=== PATIENT | female | born 1950 | race Hispanic/Latino ===

== ENCOUNTER 2017-08-22 17:07 | Inpatient (IN) | payer MEDICARE ==
[~2017-08-22] VITALS: Ht 157.5 cm; Wt 37.4 kg
[~2017-08-22 17:07] MED LIST: BENTYL10 MG PO; CEFDINIR300 MG PO; CEFUROXIME250 MG PO; CIPRO500 MG PO; FLAGYL250 MG PO; LEVAQUIN250 MG PO; LEVAQUIN500 MG PO; LEXAPRO10 MG PO; METOPROLOL TART50 MG PO; PROBIOTIC & AC1 EACH PO; QUESTRAN PACKET4 GM PO; ULTRAM 50MG50 MG PO; ULTRAM50 MG PO; ZOFRAN ODT4 MG; ZOFRAN ODT4 MG PO; ZOFRAN ODT4 MG SL; penicillin PO
[2017-08-22] MEDS ORDERED: ACETAMINOPHEN 325 MG TAB PO ONE (17:30)
--- NOTE | 2017-08-22 17:54 | Diagnostic Imaging Report ---
Two view chest x-ray INDICATION: Cough, fever COMPARISON: CT chest 12/16/2016. FINDINGS: The heart is normal in size. The aorta is ectatic. There is no evidence of hilar lymphadenopathy. The pulmonary vascular markings are normal. Diffuse pulmonary hyperinflation. There are 3 punctate calcifications or vessels on end in the right upper lobe. This is similar to career agent image of CT. There are no infiltrates. There is no evidence of focal consolidation or pleural effusion. Evaluation of the osseous structures demonstrates no focal abnormality. A percutaneous nephrostomy in the left upper quadrant is stable. IMPRESSION: Pulmonary hyperinflation consistent with COPD. No acute cardiopulmonary process. Signed by: Dr. Aruna Jewell MD on 08/22/2017 5:50 PM
[2017-08-22 19:03] LABS: BASOPHILS % 0.1 % (0.0-1.0); HEMATOCRIT 37.8 % (34.2-44.1); HEMOGLOBIN 12.3 g/dL (12.0-16.0); LYMPHOCYTES # (AUTO) 0.8 (1.0-3.2); LYMPHOCYTES % 8.7 % (18.0-39.1); MEAN CORPUSCULAR HEMOGLOBIN 31.4 pg (28-32); MEAN CORPUSCULAR HGB CONC 32.5 g/dL (31-35); MEAN CORPUSCULAR VOLUME 96.4 fL (81-99); MONOCYTES # (AUTO) 0.7 (0.2-0.8); MONOCYTES % 6.9 % (4.4-11.3); NEUTROPHILS # (AUTO) 8.1 (2.1-6.9); NEUTROPHILS % 83.9 % (38.7-80.0); PLATELET COUNT 152 x10e3/uL (140-360); RED BLOOD COUNT 3.92 x10e6/uL (3.6-5.1); RED CELL DISTRIBUTION WIDTH 13.1 % (11.7-14.4)
[2017-08-22 19:18] LABS: INR 0.78; PROTHROMBIN TIME 11.2 seconds (11.9-14.5)
[2017-08-22 19:19] LABS: PARTIAL THROMBOPLASTIN TIME 45.9 seconds (23.8-35.5)
[2017-08-22 19:27] LABS: ALANINE AMINOTRANSFERASE 12 IU/L (0-55); ALBUMIN 3.4 g/dL (3.5-5.0); ALBUMIN/GLOBULIN RATIO 0.8 (0.8-2.0); ALKALINE PHOSPHATASE 75 IU/L (40-150); ANION GAP 14.6 mmol/L (8-16); BLOOD UREA NITROGEN 24 mg/dL (7-26); BUN/CREATININE RATIO 28 (6-25); CALCIUM 9.3 mg/dL (8.4-10.2); CARBON DIOXIDE 24 mmol/L (22-29); CHLORIDE 102 mmol/L (98-107); CREATINE KINASE 28 IU/L (29-168); CREATININE, SERUM 0.87 mg/dL (0.57-1.11); EST GLOMERULAR FILTRATION RATE > 60 ML/MIN (60-); GLUCOSE 85 mg/dL (74-118); POTASSIUM 3.6 mmol/L (3.5-5.1); SODIUM 137 mmol/L (136-145)
--- NOTE | 2017-08-22 21:49 | Diagnostic Imaging Report ---
CT ABDOMEN/PELVIS WO Clinical history: Stone protocol, left nephrostomy pain Technique: Volumetric CT scan of the abdomen and pelvis was performed. No intravenous or enteric contrast was administered. Coronal, sagittal and axial images are generated from source data. Comparison: 10/31/2016 Findings: Lack of IV contrast decreases sensitivity in evaluating abdominal and pelvic organs. Lower Thorax: Primarily bibasilar reticular nodular opacities. Kidneys/Ureters/Bladder: Left percutaneous nephrostomy appears unchanged in position. Atrophic left kidney with cortical scarring. No hydronephrosis or stone disease of either kidney. No bladder stones. Other: Suboptimal noncontrast evaluation of the liver, spleen, pancreas, adrenals are grossly unremarkable. Status post cholecystectomy and hysterectomy. Status post low anterior resection with left lower quadrant colostomy and bowel containing parastomal hernia. No evidence of obstruction. Mild to moderate atherosclerotic calcifications. No free fluid or air. Bones/Soft tissues: Scattered degenerative changes, worse at L5-S1.. Impression: 1. Bilateral lower lobe aspiration/pneumonia. 2. Stable left percutaneous nephrostomy with atrophic left kidney. No significant hydronephrosis. Signed by: Dr Jodi Fay MD on 08/22/2017 9:46 PM
[2017-08-22 22:28] LABS: BILIRUBIN,URINE NEGATIVE (NEGATIVE); CLARITY,URINE CLOUDY (CLEAR); COLOR,URINE BROWN (YELLOW); KETONES,URINE 1+ (NEGATIVE); LEUKOCYTE ESTERASE ,URINE 2+ (NEGATIVE); URINE UROBILINOGEN 0.2 mg/dL (0.2 - 1)
[2017-08-22 22:29] LABS: NITRITE,URINE POSITIVE (NEGATIVE); PROTEIN,URINE DIPSTICK 2+ (NEGATIVE)
[2017-08-22 22:31] LABS: BACTERIA,URINE MANY /HPF; EPITHELIAL CELLS,URINE FEW /LPF
[2017-08-22 22:32] LABS: AMORPHOUS SEDIMENT,URINE FEW (FEW)
[2017-08-22] MEDS: MEROPENEM 1GRAM 1 GM in SODIUM CHLORIDE 0.9% 100 ML 100 ML IV SCH (22:57)
[2017-08-22] MEDS: OSELTAMIVIR PHOSPHATE 75 MG CAP PO SCH (22:57)
[2017-08-22] MEDS ORDERED: ALBUTEROL SULF 0.083% NEB SOLN 3 ML NEB NEB PRN (23:00)
[2017-08-22] MEDS ORDERED: IPRATROPIUM BROMIDE 0.02% 2.5 ML NEB NEB PRN (23:00)
[2017-08-22] MEDS ORDERED: D5.45%NS/KCL 20MEQ 1,000 ML IV ONE (23:00)
[2017-08-22] MEDS: AZITHROMYCIN 500MG/NS 250 ML 250 ML IV SCH (23:47)
[2017-08-23] VITALS (8 sets, daily range): BP systolic 104–136; BP diastolic 69–84
[2017-08-23] MEDS ORDERED: METOPROLOL TART50 MG PO (04:55)
[2017-08-23] MEDS ORDERED: MEROPENEM 1 GM VIAL ONE ×3 (05:03→20:36)
[2017-08-23] MEDS: MEROPENEM 1GRAM 1 GM in SODIUM CHLORIDE 0.9% 100 ML 100 ML IV SCH ×3 (05:07→21:18)
[2017-08-23] MEDS: AZITHROMYCIN 500MG/NS 250 ML 250 ML IV SCH (09:00)
[2017-08-23] MEDS: OSELTAMIVIR PHOSPHATE 75 MG CAP PO SCH ×2 (09:00→16:47)
[2017-08-23 09:17] LABS: CREATINE KINASE MB 0.5 ng/mL (0.00-5.00)
[2017-08-23 16:03] LABS: CREATINE KINASE MB 0.4 ng/mL (0.00-5.00)
[2017-08-23] MEDS: ENOXAPARIN SOD INJ 40 MG/0.4 ML SYR SC SCH (18:00)
[2017-08-23] MEDS: FAMOTIDINE 20 MG TAB PO SCH (18:00)
[2017-08-23] MEDS ORDERED: CHOLESTYRAMINE 4 GM PACKET PO PRN (18:00)
--- NOTE | 2017-08-24 00:15 | History and Physical ---
PRIMARY CARE PROVIDER: Not on staff. CHIEF COMPLAINT: Fever, chills, and cough. HISTORY OF PRESENT ILLNESS: Ms. Alvarado is a 66-year-old lady presenting with fever, chills at home and hacking cough producing some thick yellow sputum for the last 3 days. She is also having some tenderness over her left nephrostomy site. REVIEW OF SYSTEMS: She does complain of subjective fever and chills. She denies weight loss. She denies sinus congestion, but has had some sore throat. She denies chest pain or palpitations. She denies shortness of breath, but has had a hacking cough producing thick yellow sputum. She denies abdominal pain, nausea, vomiting, or melena. She denies dysuria. She does have some left flank pain related to left-sided nephrostomy. She denies rash or pruritus. She denies joint pain or swelling. She denies bleeding or bruising. She denies headache, vertigo, or loss of consciousness. She denies depression, agitation, homicidal or suicidal ideation. PAST MEDICAL HISTORY: Significant for long-standing hypertension. The patient had surgery in 2007 for resection of a benign colon mass. She had a partial colon resection left sided with colostomy formation, and during the surgery she had damage to her left ureter and had to have a left-sided nephrostomy tube placed which she has had in since 2007. She is being followed by urology, who changes out the nephrostomy tube about every other month or so. CURRENT MEDICATIONS: Include cefuroxime, she has been taking for UTI. She takes Questran 4 gram packets twice a day as needed for diarrhea, Lexapro 10 mg daily. She takes a probiotic capsule twice a day and she takes metoprolol 50 mg daily. ALLERGIES: SHE HAS STATED ALLERGY TO CODEINE. FAMILY HISTORY: Significant for hypertension. SOCIAL HISTORY: The patient is , but she speaks good Hebrew. She does not smoke, drink, or use illegal drugs, and she is generally independently functioning. PHYSICAL EXAMINATION: PSYCHIATRIC: She is alert and oriented x3 with normal mood and affect. CONSTITUTIONAL: She is a little bit cachectic with a BMI of 13.89, 76 pounds. She is in no acute distress. VITAL SIGNS: As follows: Blood pressure 114/72; pulse 81 currently, 114 on admission; respiratory rate 18; O2 sat 95% on room air; temperature 99.2 currently, 101.9 on admission. HEENT: Her head is atraumatic. Her eyes are anicteric with clear conjunctivae. Ears and nares are without erythema or discharge. Oropharynx is clear. NECK: Supple with no mass or thyromegaly. LYMPHATIC SYSTEM: She has no palpable cervical, axillary, or inguinal adenopathy. CARDIOVASCULAR SYSTEM: Her heart has a regular rate and rhythm without murmur or extra heart sounds. She has no peripheral edema. She has palpable dorsal pedal pulses. She has no carotid bruit. RESPIRATORY: Lungs are clear to auscultation and percussion with a hacking bronchitic cough. She has no wheezing. She has normal respiratory effort. GASTROINTESTINAL: Her abdomen is soft without organomegaly, masses, or tenderness. She has normal bowel sounds present. She has some tenderness over last nephrostomy area with some mild erythema. CUTANEOUS: Her skin is warm and dry to touch with no rash or skin breakdown. MUSCULOSKELETAL: Her joints are in normal alignment without erythema or swelling. She has no calf tenderness. NEUROLOGIC: Nonfocal with intact cranial nerves and no motor or sensory deficits. DIAGNOSTIC STUDIES: Chest x-ray shows COPD changes and no acute disease. CT scan of the abdomen shows bilateral lower lobe pneumonia versus aspiration. She has an atrophic left kidney and a nephrostomy in place with no hydronephrosis. Her UA has 11 to 20 red cells and 11 to 20 white cells and many bacteria. Cultures already growing greater than 100,000 gram-negative rods. She has in the past grown Klebsiella that was multidrug resistant. Troponin 0.006, 0.010, 0.012 and BNP 40.8. Her chemistry shows normal electrolytes, CO2 24, creatinine 0.87, BUN 24 for a normal GFR. Calcium is 9.3. Glucose is 85. Transaminases, bilirubin, and alk phos are normal. CBC shows a white count of 9.7 with 84% neutrophils, 9% lymphocytes, and 7% monocytes. Hemoglobin 12.3, hematocrit 37.8, and platelet count 152,000. IMPRESSION AND PLAN: 1. Sepsis. Patient meets criteria with elevated temperature, elevated heart rate, and an identifiable source in the urine. The patient received some intravenous fluid bolus and is being treated with broad-spectrum antibiotics. 2. Bronchitis. The patient has been placed on supplemental oxygen, aggressive nebulizer treatments, as well as intravenous meropenem and Zithromax and p.o. Mucinex for expectoration. 3. Urinary tract infection/left pyelonephritis with a left nephrostomy tube. The patient has been started on intravenous meropenem for the urinary tract infection growing gram-negative rods. Will consult urology to orchestrate removing and replacing the left-sided nephrostomy. 4. For hypertension, the patient is controlled. Will continue her metoprolol. 5. For prophylaxis, the patient will be on Pepcid for gastrointestinal prophylaxis and Lovenox for deep venous thrombosis prophylaxis. Job#: [id number]
[2017-08-24] MEDS ORDERED: MEROPENEM 1 GM VIAL ONE ×3 (04:29→20:21)
[2017-08-24 05:12] VITALS: BP 123/72
[2017-08-24] MEDS: MEROPENEM 1GRAM 1 GM in SODIUM CHLORIDE 0.9% 100 ML 100 ML IV SCH ×3 (05:25→21:07)
[2017-08-24 06:48] LABS: BASOPHILS % 0.4 % (0.0-1.0); EOSINOPHILS # (AUTO) 0.1 (0.0-0.4); EOSINOPHILS % 1.1 % (0.0-6.0); HEMATOCRIT 34.6 % (34.2-44.1); HEMOGLOBIN 11.3 g/dL (12.0-16.0); LYMPHOCYTES # (AUTO) 0.9 (1.0-3.2); LYMPHOCYTES % 15.1 % (18.0-39.1); MEAN CORPUSCULAR HEMOGLOBIN 31.7 pg (28-32); MEAN CORPUSCULAR HGB CONC 32.7 g/dL (31-35); MEAN CORPUSCULAR VOLUME 97.2 fL (81-99); MONOCYTES # (AUTO) 0.4 (0.2-0.8); MONOCYTES % 6.9 % (4.4-11.3); NEUTROPHILS # (AUTO) 4.3 (2.1-6.9); NEUTROPHILS % 76.3 % (38.7-80.0); PLATELET COUNT 188 x10e3/uL (140-360); RED BLOOD COUNT 3.56 x10e6/uL (3.6-5.1); RED CELL DISTRIBUTION WIDTH 12.9 % (11.7-14.4)
[2017-08-24 07:06] LABS: ANION GAP 8.9 mmol/L (8-16); BLOOD UREA NITROGEN 14 mg/dL (7-26); BUN/CREATININE RATIO 20 (6-25); CALCIUM 8.4 mg/dL (8.4-10.2); CARBON DIOXIDE 28 mmol/L (22-29); CHLORIDE 102 mmol/L (98-107); EST GLOMERULAR FILTRATION RATE > 60 ML/MIN (60-); GLUCOSE 99 mg/dL (74-118); MAGNESIUM 1.6 MG/DL (1.3-2.1); POTASSIUM 3.9 mmol/L (3.5-5.1); SODIUM 135 mmol/L (136-145)
[2017-08-24 07:28] VITALS: BP 102/69
[2017-08-24 07:35] LABS: FREE T4 (FREE THYROXINE) 1.51 ng/dL (0.8-1.8); THYROID STIMULATING HORMONE 1.004 uIU/mL (0.350-4.940)
[2017-08-24] MEDS: FAMOTIDINE 20 MG TAB PO SCH ×2 (08:15→16:35)
[2017-08-24] MEDS: ESCITALOPRAM OXALATE 10 MG TAB PO SCH (09:00)
[2017-08-24] MEDS: LACTOBACILLUS ACIDOPHILUS CAPSULE PO SCH ×2 (09:30→16:35)
[2017-08-24] MEDS: OSELTAMIVIR PHOSPHATE 75 MG CAP PO SCH ×2 (09:30→16:35)
[2017-08-24] MEDS: AZITHROMYCIN 500MG/NS 250 ML 250 ML IV SCH (09:30)
[2017-08-24] MEDS: METOPROLOL TARTRATE 50 MG TAB PO SCH (09:30)
[2017-08-24 11:23] VITALS: BP 114/83
[2017-08-24 15:42] VITALS: BP 104/70
[2017-08-24] MEDS: ENOXAPARIN SOD INJ 40 MG/0.4 ML SYR SC SCH (16:35)
[2017-08-24] MEDS: GUAIFENESIN 600 MG TAB PO SCH (17:55)
[2017-08-24 20:00] VITALS: BP 96/71
[2017-08-25] VITALS: BP 111/76
[2017-08-25] MEDS: GUAIFENESIN 600 MG TAB PO SCH ×4 (00:09→17:20)
[2017-08-25 04:00] VITALS: BP_SYST 111; BP_SYST 175; BP_DIAS 72; BP_DIAS 83
[2017-08-25] MEDS: MEROPENEM 1GRAM 1 GM in SODIUM CHLORIDE 0.9% 100 ML 100 ML IV SCH ×3 (05:48→22:09)
[2017-08-25 07:19] LABS: BASOPHILS % 0.4 % (0.0-1.0); EOSINOPHILS # (AUTO) 0.1 (0.0-0.4); EOSINOPHILS % 2.2 % (0.0-6.0); HEMATOCRIT 35.4 % (34.2-44.1); HEMOGLOBIN 11.4 g/dL (12.0-16.0); LYMPHOCYTES # (AUTO) 0.8 (1.0-3.2); LYMPHOCYTES % 28.9 % (18.0-39.1); MEAN CORPUSCULAR HEMOGLOBIN 31.3 pg (28-32); MEAN CORPUSCULAR HGB CONC 32.2 g/dL (31-35); MEAN CORPUSCULAR VOLUME 97.3 fL (81-99); MONOCYTES # (AUTO) 0.3 (0.2-0.8); MONOCYTES % 10.5 % (4.4-11.3); NEUTROPHILS # (AUTO) 1.6 (2.1-6.9); NEUTROPHILS % 57.6 % (38.7-80.0); PLATELET COUNT 229 x10e3/uL (140-360); RED BLOOD COUNT 3.64 x10e6/uL (3.6-5.1); RED CELL DISTRIBUTION WIDTH 12.7 % (11.7-14.4)
[2017-08-25 07:36] LABS: ANION GAP 10.1 mmol/L (8-16); BLOOD UREA NITROGEN 16 mg/dL (7-26); BUN/CREATININE RATIO 21 (6-25); CALCIUM 8.8 mg/dL (8.4-10.2); CARBON DIOXIDE 27 mmol/L (22-29); CHLORIDE 104 mmol/L (98-107); CREATININE, SERUM 0.76 mg/dL (0.57-1.11); EST GLOMERULAR FILTRATION RATE > 60 ML/MIN (60-); GLUCOSE 85 mg/dL (74-118); POTASSIUM 4.1 mmol/L (3.5-5.1); SODIUM 137 mmol/L (136-145)
[2017-08-25] MEDS: FAMOTIDINE 20 MG TAB PO SCH ×2 (08:00→17:00)
[2017-08-25] MEDS: METOPROLOL TARTRATE 50 MG TAB PO SCH (08:15)
[2017-08-25] MEDS: AZITHROMYCIN 500MG/NS 250 ML 250 ML IV SCH (08:15)
[2017-08-25] MEDS: OSELTAMIVIR PHOSPHATE 75 MG CAP PO SCH (08:15)
[2017-08-25] MEDS: LACTOBACILLUS ACIDOPHILUS CAPSULE PO SCH ×2 (08:45→17:25)
[2017-08-25] MEDS: ESCITALOPRAM OXALATE 10 MG TAB PO SCH (09:00)
[2017-08-25 10:15] VITALS: BP 117/76
[2017-08-25 12:40] VITALS: BP 102/68
[2017-08-25] MEDS ORDERED: MEROPENEM 1 GM VIAL ONE ×2 (14:54→20:31)
[2017-08-25 16:11] VITALS: BP 95/55
[2017-08-25] MEDS: ENOXAPARIN SOD INJ 40 MG/0.4 ML SYR SC SCH (17:20)
[2017-08-25 20:00] VITALS: BP 105/69
[2017-08-26] VITALS: BP 112/69
[2017-08-26 04:00] VITALS: BP 117/68
[2017-08-26] MEDS: GUAIFENESIN 600 MG TAB PO SCH ×5 (06:00→23:13)
[2017-08-26] MEDS: MEROPENEM 1GRAM 1 GM in SODIUM CHLORIDE 0.9% 100 ML 100 ML IV SCH ×2 (06:42→13:13)
[2017-08-26] MEDS: FAMOTIDINE 20 MG TAB PO SCH ×2 (07:30→17:38)
[2017-08-26 07:55] LABS: BASOPHILS % 0.8 % (0.0-1.0); EOSINOPHILS # (AUTO) 0.1 (0.0-0.4); EOSINOPHILS % 4.4 % (0.0-6.0); HEMATOCRIT 38.9 % (34.2-44.1); HEMOGLOBIN 12.5 g/dL (12.0-16.0); LYMPHOCYTES # (AUTO) 0.8 (1.0-3.2); LYMPHOCYTES % 33.5 % (18.0-39.1); MEAN CORPUSCULAR HEMOGLOBIN 31.4 pg (28-32); MEAN CORPUSCULAR HGB CONC 32.1 g/dL (31-35); MEAN CORPUSCULAR VOLUME 97.7 fL (81-99); MONOCYTES # (AUTO) 0.3 (0.2-0.8); MONOCYTES % 10.4 % (4.4-11.3); NEUTROPHILS # (AUTO) 1.3 (2.1-6.9); NEUTROPHILS % 50.5 % (38.7-80.0); PLATELET COUNT 316 x10e3/uL (140-360); RED BLOOD COUNT 3.98 x10e6/uL (3.6-5.1); RED CELL DISTRIBUTION WIDTH 12.6 % (11.7-14.4)
[2017-08-26 08:03] LABS: BLOOD UREA NITROGEN 21 mg/dL (7-26); BUN/CREATININE RATIO 26 (6-25); CALCIUM 9.1 mg/dL (8.4-10.2); CARBON DIOXIDE 27 mmol/L (22-29); CHLORIDE 104 mmol/L (98-107); CREATININE, SERUM 0.82 mg/dL (0.57-1.11); EST GLOMERULAR FILTRATION RATE > 60 ML/MIN (60-); GLUCOSE 87 mg/dL (74-118); SODIUM 140 mmol/L (136-145)
[2017-08-26] MEDS: LACTOBACILLUS ACIDOPHILUS CAPSULE PO SCH ×2 (08:45→17:36)
[2017-08-26] MEDS ORDERED: LIDOCAINE HCL 2% LOCAL 20 ML VIAL ONE (09:32)
[2017-08-26] MEDS ORDERED: FENTANYL CITRATE/PF 100MCG/2 ML INJ ONE (09:32)
[2017-08-26] MEDS ORDERED: MIDAZOLAM HCL 2 MG/2 ML VIAL ONE (09:32)
[2017-08-26] MEDS ORDERED: SODIUM CHLORIDE 0.9% 500ML 1,000 ML ONE (09:33)
[2017-08-26] MEDS ORDERED: IOPAMIDOL 300MG/ML 50ML INFUS..BTL IV ONE (09:33)
[2017-08-26] MEDS ORDERED: SODIUM CHLORIDE 0.9% 250ML 250 ML ONE (11:16)
[2017-08-26] MEDS: AZITHROMYCIN 500MG/NS 250 ML 250 ML IV SCH (11:19)
[2017-08-26] MEDS: ESCITALOPRAM OXALATE 10 MG TAB PO SCH (11:19)
[2017-08-26] MEDS: METOPROLOL TARTRATE 50 MG TAB PO SCH (11:21)
[2017-08-26] MEDS ORDERED: ACETAMINOPHEN/CODEINE 300MG - 30MG TAB PO PRN (11:45)
[2017-08-26] MEDS ORDERED: TRAMADOL HCL 50 MG TAB PO PRN (12:00)
[2017-08-26 12:16] VITALS: BP 115/68
[2017-08-26] MEDS ORDERED: MEROPENEM 1 GM VIAL ONE (13:15)
[2017-08-26 16:21] VITALS: BP 108/64
[2017-08-26] MEDS ORDERED: IPRATROPIUM BROMIDE 0.02% 2.5 ML NEB NEB PRN (16:45)
[2017-08-26] MEDS: ENOXAPARIN SOD INJ 40 MG/0.4 ML SYR SC SCH (17:36)
[2017-08-26 20:03] VITALS: BP 104/65
[2017-08-26] MEDS ORDERED: MEROPENEM 1 GM VIAL IV SCH (22:00)
[2017-08-26] MEDS: MEROPENEM 1 GM VIAL IV SCH (22:00)
[2017-08-27 00:30] VITALS: BP 105/63
[2017-08-27 02:30] VITALS: BP 105/63
[2017-08-27 05:09] VITALS: BP 112/58
[2017-08-27] MEDS: GUAIFENESIN 600 MG TAB PO SCH ×3 (06:08→18:00)
[2017-08-27] MEDS: MEROPENEM 1 GM VIAL IV SCH ×2 (06:08→13:00)
--- NOTE | 2017-08-27 06:38 | Diagnostic Imaging Report ---
EXAMINATION: CHEST SINGLE (PORTABLE) INDICATION: Pneumonia, follow-up COMPARISON: 08/22/2017 FINDINGS: TUBES and LINES: None. LUNGS: Hyperinflation of the lungs with stable scattered interstitial nodular opacities predominantly in the lung bases. PLEURA: No pleural effusion or pneumothorax. HEART AND MEDIASTINUM: The cardiomediastinal silhouette is unremarkable. BONES AND SOFT TISSUES: No acute osseous lesion. Soft tissues are unremarkable. UPPER ABDOMEN: No free air under the diaphragm. IMPRESSION: Stable interstitial nodular opacities in the lung bases compatible with persistent infection. COPD present. Signed by: Dr. Matt Young M.D. on 08/27/2017 6:35 AM
[2017-08-27 07:14] LABS: BASOPHILS % 1.2 % (0.0-1.0); EOSINOPHILS # (AUTO) 0.2 (0.0-0.4); HEMOGLOBIN 10.8 g/dL (12.0-16.0); LYMPHOCYTES # (AUTO) 0.9 (1.0-3.2); LYMPHOCYTES % 34.3 % (18.0-39.1); MEAN CORPUSCULAR HGB CONC 32.7 g/dL (31-35); MEAN CORPUSCULAR VOLUME 97.6 fL (81-99); MONOCYTES # (AUTO) 0.4 (0.2-0.8); MONOCYTES % 15.1 % (4.4-11.3); NEUTROPHILS # (AUTO) 1.1 (2.1-6.9); PLATELET COUNT 310 x10e3/uL (140-360); RED BLOOD COUNT 3.38 x10e6/uL (3.6-5.1); RED CELL DISTRIBUTION WIDTH 12.5 % (11.7-14.4)
[2017-08-27 07:42] LABS: ANION GAP 9.3 mmol/L (8-16); BLOOD UREA NITROGEN 19 mg/dL (7-26); BUN/CREATININE RATIO 27 (6-25); CALCIUM 8.7 mg/dL (8.4-10.2); CARBON DIOXIDE 28 mmol/L (22-29); CHLORIDE 103 mmol/L (98-107); EST GLOMERULAR FILTRATION RATE > 60 ML/MIN (60-); GLUCOSE 88 mg/dL (74-118); POTASSIUM 4.3 mmol/L (3.5-5.1); SODIUM 136 mmol/L (136-145)
[2017-08-27 07:51] VITALS: BP 121/81
[2017-08-27] MEDS: AZITHROMYCIN 500MG/NS 250 ML 250 ML IV SCH (08:59)
[2017-08-27] MEDS: FAMOTIDINE 20 MG TAB PO SCH ×2 (08:59→16:30)
[2017-08-27] MEDS: LACTOBACILLUS ACIDOPHILUS CAPSULE PO SCH ×2 (08:59→17:00)
[2017-08-27] MEDS: METOPROLOL TARTRATE 50 MG TAB PO SCH (09:00)
[2017-08-27] MEDS: ESCITALOPRAM OXALATE 10 MG TAB PO SCH (09:00)
[2017-08-27 11:56] VITALS: BP_SYST 104; BP_SYST 115; BP_DIAS 70; BP_DIAS 71
[2017-08-27] MEDS ORDERED: ACETYLCYSTEINE 20% INHAL SOLN 30 ML VIAL INH SCH (15:00)
[2017-08-27 15:52] VITALS: BP 101/66
[2017-08-27] MEDS: ENOXAPARIN SOD INJ 40 MG/0.4 ML SYR SC SCH (18:12)
[2017-08-27] MEDS ORDERED: MUCINEX600 MG PO (18:23)
[2017-08-27] MEDS ORDERED: PREDNISONE10 MG PO (18:23)
[2017-08-27] MEDS ORDERED: LEVAQUIN PO (18:23)
--- NOTE | 2017-08-27 22:18 | Discharge Summary ---
ADMITTING DIAGNOSES 1. Sepsis. 2. Bronchitis. 3. Urinary tract infection. 4. Hypertension. DISCHARGE DIAGNOSES 1. Sepsis. 2. Bronchitis. 3. Urinary tract infection. 4. Hypertension. 5. Rule out flu. HISTORY: Patient has a history of hypertension, surgery in 2007 for resection of a benign colon mass. She had a partial colon resection left sided with colostomy formation. During the surgery, she had her left ureter was damaged and had to have a nephrostomy tube placed on the left. She is followed by urology, who changes up the nephrostomy tube every 2 to 3 months per patient report. HOSPITAL COURSE: A 66-year-old female presented with fever, chills, productive cough, thick yellow sputum for the last 3 days. She was also having some tenderness over her left nephrostomy site. On admission, patient received IV fluid bolus and IV antibiotics. Chest x-ray showed pulmonary hyperinflation consistent with COPD. No acute cardiopulmonary process. She also had a CT of the abdomen, which showed bilateral lower lobe pneumonia, stable left nephrostomy tube with atrophic left kidney. No significant hydronephrosis. Patient was started on IV antibiotics for pneumonia and the urine culture came back with proteus mirabilis, Staphylococcus aureus, Streptococcus . Patient was started on Merrem while in the hospital. Hypertension was controlled on current meds. The nephrostomy was changed per urology on August 26, 2017. A repeat urine culture was done, which was negative. Patient was sent home on another week of antibiotics to cover both the UTI and the pneumonia. Patient is to follow up with urology as regularly scheduled. Patient will discontinue home with taper steroids, guaifenesin, and antibiotics for another week. Dictated by: Carrol So NP LUDWIN JOHNSON MD Job#: [id number]
--- NOTE | 2017-08-31 12:59 | Diagnostic Imaging Report ---
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 Heart rate and oxygen saturation were monitored in real-time. Blood pressure was measured in 5 minute increments. Radiation Dose: 37.7 cGycm2 (Dose Area Product) Fluoroscopy time: 3.6 minutes Estimate blood loss: None Blood administered: None Complications: None Implants/Grafts: 10-St Helenian left nephrostomy Specimen: None Procedure: Informed consent was obtained and the patient placed prone. A timeout was performed. The left back and indwelling nephrostomy were prepped and draped in standard sterile fashion. Contrast injection reveals contrast extending to the mid ureter where there is a chronic obstruction. Mild hydronephrosis is present. The catheter was removed over a 0.035 " glidewire and exchanged for a new 10-St Helenian nephrostomy, with a loop coiled in the renal pelvis. Contrast injection confirmed appropriate positioning. Catheter was secured, connected to gravity drainage and a sterile dressing applied. Findings: Chronic left mild hydronephrosis secondary to chronic ureteral injury. Impression: Successful 10-St Helenian left nephrostomy catheter exchange. Signed by: Dr. Iván Becerril DO on 08/28/2017 7:29 AM
== END 2017-08-27 20:07 | disposition home or self-care (01) | DRG 698 ==
LOC: ER 17:07 → EDBEDREQ 23:03 → MED/SURG3 23:34
PROVIDERS: ADMIT Internal Medicine; ATTEND Internal Medicine
PROC: 0T25X0Z Change Drainage Device in Kidney, External Approach (ICD-10-PCS; principal; 2017-08-26)
DX: T83.512A Infection and inflammatory reaction due to nephrostomy catheter, initial encounter (principal); A41.9 Sepsis, unspecified organism; E87.1 Hypo-osmolality and hyponatremia; Z93.6 Other artificial openings of urinary tract status; N39.0 Urinary tract infection, site not specified; I10 Essential (primary) hypertension; Z90.49 Acquired absence of other specified parts of digestive tract; B96.4 Proteus (mirabilis) (morganii) as the cause of diseases classified elsewhere; B95.61 Methicillin susceptible Staphylococcus aureus infection as the cause of diseases classified elsewhere; B95.4 Other streptococcus as the cause of diseases classified elsewhere; Z16.24 Resistance to multiple antibiotics; Y73.2 Prosthetic and other implants, materials and accessory gastroenterology and urology devices associated with adverse incidents; Y92.019 Unspecified place in single-family (private) house as the place of occurrence of the external cause
CPT/HCPCS: 36415; 71020; 71045; 74176; 74470; 75984; 77001; 80048; 80053; 81001; 82550; 82553; 83735; 83880; 84439; 84443; 84484; 85025; 85610; 85730; 87040; 87086; 87186; 87400; 93005; 99284; J0456; J1650; J2001; J2185; J2250; J7040; J7050

== ENCOUNTER → 2017-11-03 | Day surgery (SDC) | payer MEDICARE ==
[~2017-11-03] VITALS: Ht 157.5 cm; Wt 37.2 kg
[~2017-11-03] MED LIST changes: +FENTANYL CITRATE/PF 100MCG/2 ML INJ ONE; +IOPAMIDOL 300MG/ML 50ML INFUS..BTL IV ONE; +LEVAQUIN PO; +LIDOCAINE HCL 2% LOCAL 20 ML VIAL ONE; +MIDAZOLAM HCL 2 MG/2 ML VIAL ONE; +MUCINEX600 MG PO; +PREDNISONE10 MG PO; +SODIUM CHLORIDE 0.9% 500ML 1,000 ML ONE
--- OUTSIDE RECORDS SUMMARY | 2017-11-03 10:38 | XMS REPORT ---
Author Author [facility] Address Unknown Phone Unavailable Care Team Providers Care Bridge Attacher Name Role Phone LUDWIN JOHNSON Unavailable Unavailable RONI ESCOBEDO Unavailable Unavailable LUKE KILGORE Unavailable Unavailable Problems This patient has no known problems. Allergies, Adverse Reactions, Alerts This patient has no known allergies or adverse reactions. Medications This patient has no known medications. Results Test Description Test Time Test Comments Text Results Atomic Results Result Comments CHEST SINGLE (PORTABLE) [place] [address] Patient Name: YANN CASTRO MR #: [id number] : 1950 Age/Sex: 66/F Req #: [id number] Adm Physician: LUDWIN JOHNSON MD Ordered by: Boyd Rice FIELD FOREMAN Report #: [id number] Location: MED[facility] Room/Bed: [facility] Procedure: [id number] DX/CHEST SINGLE (PORTABLE) Exam Date: 08/27/17 Exam Time: 0608 REPORT STATUS: Signed EXAMINATION: CHEST SINGLE (PORTABLE) INDICATION: Pneumonia, follow-up COMPARISON: 08/22/2017 FINDINGS: TUBES and LINES: None. LUNGS: Hyperinflation of the lungs with stable scattered interstitial nodular opacities predominantly in the lung bases. PLEURA: No pleural effusion or pneumothorax. HEART AND MEDIASTINUM : The cardiomediastinal silhouette is unremarkable. BONES AND SOFT TISSUES: No acute osseous lesion. Soft tissues are unremarkable. UPPER ABDOMEN: No free air under the diaphragm. IMPRESSION: Stable interstitial nodular opacities in the lung bases compatible with persistent infection. COPD present. Signed by: Dr. Matt Young M.D. 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 Heart rate and oxygen saturation were monitored in real-time. Blood pressure was measured in 5 minute increments. Radiation Dose: 37.7 cGycm2 (Dose Area Product) Fluoroscopy time: 3.6 minutes Estimate blood loss: None Blood administered : None Complications: None Implants/Grafts: 10-Malaysian left nephrostomy Specimen: None Procedure: Informed consent was obtained and the patient placed prone. A timeout was performed. The left back and indwelling nephrostomy were prepped and draped in standard sterile fashion. Contrast injection reveals contrast extending to the mid ureter where there is a chronic obstruction. Mild hydronephrosis is present. The catheter was removed over a 0.035 " glidewire and exchanged for a new 10-Malaysian nephrostomy , with a loop coiled in the renal pelvis. Contrast injection confirmed appropriate positioning. Catheter was secured, connected to gravity drainage and a sterile dressing applied. Findings: Chronic left mild hydronephrosis secondary to chronic ureteral injury. Impression: Successful 10-Malaysian left nephrostomy catheter exchange. Signed by: Dr. Iván Becerril DO on 08/28/2017 7:29 AM Dictated By: IVÁN BECERRIL DO 1256 Transcribed By: LIBORIO on 08/31/17 1256 COPY TO: LUDWIN JOHNSON MD CT ABDOMEN/PELVIS WO [place] [address] Patient Name: YANN CASTRO MR #: [id number] : 1950 Age/Sex: 66/F Req #: [id number] Adm Physician: Ordered by: RONI ESCOBEDO MD Report #: [id number] Location: ER Room/Bed: Procedure: [id number] CT/CT ABDOMEN/PELVIS WO Exam Date: 08/22/17 Exam Time: 2120 REPORT STATUS: Signed CT ABDOMEN/PELVIS WO Clinical history: Stone protocol, left nephrostomy pain Technique: Volumetric CT scan of the abdomen and pelvis was performed. No intravenous or enteric contrast was administered. Coronal, sagittal and axial images are generated from source data. Comparison: 10/31/2016 Findings: Lack of IV contrast decreases sensitivity in evaluating abdominal and pelvic organs. Lower Thorax: Primarily bibasilar reticular nodular opacities. Kidneys/ Ureters/Bladder: Left percutaneous nephrostomy appears unchanged in position. Atrophic left kidney with cortical scarring. No hydronephrosis or stone disease of either kidney. No bladder stones. Other: Suboptimal noncontrast evaluation of the liver, spleen, pancreas, adrenals are grossly unremarkable. Status post cholecystectomy and hysterectomy. Status post low anterior resection with left lower quadrant colostomy and bowel containing parastomal hernia. No evidence of obstruction. Mild to moderate atherosclerotic calcifications. No free fluid or air. Bones/Soft tissues: Scattered degenerative changes, worse at L5-S1.. Impression: 1. Bilateral lower lobe aspiration/pneumonia. 2. Stable left percutaneous nephrostomy with atrophic left kidney. No significant hydronephrosis. Signed by: Dr Anabell Fay MD on 08/22/2017 9:46 PM Dictated By: ANABELL FAY MD 45 Transcribed By: LIBORIO on 08/22/172145 COPY TO: RONI ESCOBEDO MD CHEST 2 VIEWS [place] [address] Patient Name: YANN CASTRO MR #: [id number] : 1950 Age/Sex: 66/F Req # : [id number] Adm Physician: Ordered by: LESLYE ADLER MD Report #: [id number] Location: ER Room/Bed: Procedure: [id number] DX/CHEST 2 VIEWS Exam Date: 08/22/17 Exam Time: 1733 REPORT STATUS: Signed Two view chest x-ray INDICATION: Cough , fever COMPARISON: CT chest 12/16/2016. FINDINGS: The heart is normal in size. The aorta is ectatic. There is no evidence of hilar lymphadenopathy. The pulmonary vascular markings are normal. Diffuse pulmonary hyperinflation. There are 3 punctate calcifications or vessels on end in the right upper lobe. This is similar to rules examiner image of CT. There are no infiltrates. There is no evidence of focal consolidation or pleural effusion. Evaluation of the osseous structures demonstrates no focal abnormality. A percutaneous nephrostomy in the left upper quadrant is stable. IMPRESSION: Pulmonary hyperinflation consistent with COPD. No acute cardiopulmonary process. Signed by: Dr. Denzel Jewell MD on 5:50 PM Dictated By: DENZEL JEWELL MD 49 Transcribed By: LIBORIO on 1749 COPY TO: LESLYE ADLER MD CT ABDOMEN/PELVIS W [place] [address] Patient Name: YANN CASTRO MR #: [id number] : 1950 Age/Sex: 66/F Req #: [id number] Adm Physician: Ordered by: MADELIN BOGGS FIELD FOREMAN Report #: [id number] Location: ER Room/Bed: Procedure: [id number] CT/CT ABDOMEN/PELVIS W Exam Date: 06/24/17 Exam Time: 2235 REPORT STATUS: Signed EXAM: CT ABDOMEN/ PELVIS W DATE: 06/24/2017 7:29 PM INDICATION: S abdominal and possible colostomy failure COMPARISON: 425 TECHNIQUE: The abdomen and pelvis were scanned using a multidetector helical scanner. Coronal and sagittal reformations were obtained. Routine protocol performed. IV Contrast: 100 ml Isovue 370 FINDINGS: LOWER THORAX: Mild right basilar scarring/ atelectasis. LIVER/BILIARY: No masses. No ductal dilatation. GALLBLADDER: Surgically absent SPLEEN: Unremarkable PANCREAS: Unremarkable ADRENALS: No nodules KIDNEYS: Left percutaneous nephrostomy tube in place without significant hydronephrosis. Underlying left renal atrophy with cortical scarring. Normal right kidney. GI TRACT: Moderate stool burden. Status post low anterior resection with left lower quadrant colostomy. Nonobstructing small and large bowel containing parastomal hernia. VESSELS: Moderate atherosclerotic changes. PERITONEUM/RETROPERITONEUM: No free air or fluid LYMPH NODES: No lymphadenopathy REPRODUCTIVE ORGANS/ BLADDER: Status post hysterectomy. BONES: Scattered degenerative changes, worse at L5-S1. IMPRESSION: 1. Status post partial colectomy with left lower quadrant colostomy and unchanged nonobstructing parastomal hernia. There is moderate stool burden. 2. Left percutaneous nephrostomy tube in place without significant hydronephrosis. Underlying left renal atrophy. Signed by: Dr Anabell Fay MD on 06/24/2017 11:18 PM Dictated By: ANABELL FAY MD 17 Transcribed By: LIBORIO on 06/24/172317 COPY TO: MADELIN BOGGS NP SPECIAL PROCEDURE IN [place] [address] Patient Name: YANN CASTRO MR #: [id number] : 1950 Age/Sex: 66/F Req #: [id number] Adm Physician: Ordered by: STEPHANIA BONDS MD Report #: [id number] Location: [place] Room/Bed: Procedure: [id number] IR/SPECIAL PROCEDURE IN [place] Exam Date: Exam Time: REPORT STATUS: Signed Nephrostomy catheter exchange June 08, 2017 Pre-Procedure Diagnosis: Left ureteral occlusion Post-procedure Diagnosis:Left ureteral occlusion County Surveyor: Eugenie Kilgore Senior User Experience Architect: None Sedation: None. Heart rate and oxygen saturation were monitored in real-time. Blood pressure was measured in 5 minute increments. Radiation Dose:21.7 cGycm2 (Dose Area Product) Fluoroscopy time:0.7 minutes Estimate blood loss: None Blood administered: None Complications: None Implants/Grafts: 10-Malaysian left nephrostomy Specimen: None Procedure: Informed consent was obtained and the patient placed prone. A timeout was performed. The left back and indwelling nephrostomy were prepped and draped in standard sterile fashion. Contrast injection demonstrated patency of the indwelling 10-Malaysian nephrostomy, without hydronephrosis. The catheter was removed over an Amplatz wire and exchanged for a new 10-Malaysian nephrostomy, with the loop coiled in the renal pelvis. Contrast injection confirmed appropriate positioning. Catheter was secured, connected to gravity drainage and a sterile dressing applied. Findings: Persistent left ureteral occlusion. Impression: Successful 10-Malaysian left nephrostomy catheter exchange. Recommendations : Routine catheter exchange in 2 months. This report was generated with voice-recognition technology. Errors in volcanologist can occur. Please interpret accordingly and contact a radiologist if there are any questions regarding the report. Signed by: Dr. Luke Kilgore M.D. on 06/08/2017 12:17 PM Dictated By: LUKE KILGORE MD 1128 Transcribed By: LIBORIO on 1128 COPY TO: STEPHANIA BONDS MD
[2017-11-03 11:07] VITALS: BP 132/89
[2017-11-03 13:24] VITALS: BP 143/107
--- NOTE | 2017-11-06 12:30 | Diagnostic Imaging Report ---
Nephrostomy catheter exchange 11/03/2017 Pre-Procedure Diagnosis: Left ureteral occlusion Post-procedure Diagnosis:Left ureteral occlusion Scheduling Administrator: Eugenie Kilgore Tube Draw Helper: None Sedation: None. Heart rate and oxygen saturation were monitored in real-time. Blood pressure was measured in 5 minute increments. Radiation Dose:4.4 cGycm2 (Dose Area Product) Fluoroscopy time:0.7 minutes Estimate blood loss: None Blood administered: None Complications: None Implants/Grafts: 10-[place] left nephrostomy Specimen: None Procedure: Informed consent was obtained and the patient placed prone. A timeout was performed. The left back and indwelling nephrostomy were prepped and draped in standard sterile fashion. Contrast injection demonstrated patency of the indwelling 10-[place] nephrostomy, without hydronephrosis. The catheter was removed over an Amplatz wire and exchanged for a new 10-[place] nephrostomy, with the loop coiled in the renal pelvis. There is mild difficulty advancing the Amplatz in keeping with stent encrustation. Contrast injection confirmed appropriate positioning. Catheter was secured, connected to gravity drainage and a sterile dressing applied. Findings: 1. Persistent left ureteral occlusion. 2. Moderate stent encrustation. Impression: Successful 10-[place] left nephrostomy catheter exchange. Recommendations: Routine catheter exchange in 2 months given stent encrustation.. This report was generated with voice-recognition technology. Errors in linotype operator can occur. Please interpret accordingly and contact a radiologist if there are any questions regarding the report. Signed by: Dr. Aden Kilgore M.D. on 11/03/2017 1:54 PM
== END | disposition home or self-care (01) ==
LOC: CATH LAB 10:34
PROVIDERS: ATTEND Radiology Vascular & Interventional Radiology
DX: N13.5 Crossing vessel and stricture of ureter without hydronephrosis (principal); Z96.0 Presence of urogenital implants
CPT/HCPCS: 50435; C1729; C1769; J2001; J7040; Q9967; 77001; J2250

== ENCOUNTER 2017-11-05 13:25 | Inpatient (IN) | payer MEDICARE, OTHER ==
[~2017-11-05] VITALS: Ht 157.5 cm; Wt 37.2 kg
[~2017-11-05 13:25] MED LIST changes: -FENTANYL CITRATE/PF 100MCG/2 ML INJ ONE; -IOPAMIDOL 300MG/ML 50ML INFUS..BTL IV ONE; -LIDOCAINE HCL 2% LOCAL 20 ML VIAL ONE; -MIDAZOLAM HCL 2 MG/2 ML VIAL ONE; -SODIUM CHLORIDE 0.9% 500ML 1,000 ML ONE
[2017-11-05] MEDS ORDERED: ONDANSETRON HCL INJ 2 MG/ML VIAL IV STA (13:38)
[2017-11-05] MEDS ORDERED: SODIUM CHLORIDE 0.9% 1000ML 1,000 ML IV STA (13:38)
[2017-11-05] MEDS ORDERED: DIATRIZOATE MEGL/DIATRIZOA SOD 30 ML BTL PO ONE (14:13)
[2017-11-05 14:50] LABS: BASOPHILS # (AUTO) 0.1 (0.0-0.1); BASOPHILS % 0.5 % (0.0-1.0); EOSINOPHILS # (AUTO) 0.1 (0.0-0.4); EOSINOPHILS % 1.2 % (0.0-6.0); HEMATOCRIT 36.4 % (34.2-44.1); HEMOGLOBIN 11.7 g/dL (12.0-16.0); LYMPHOCYTES # (AUTO) 0.8 (1.0-3.2); LYMPHOCYTES % 8.8 % (18.0-39.1); MEAN CORPUSCULAR HEMOGLOBIN 31.6 pg (28-32); MEAN CORPUSCULAR HGB CONC 32.1 g/dL (31-35); MEAN CORPUSCULAR VOLUME 98.4 fL (81-99); MONOCYTES # (AUTO) 0.6 (0.2-0.8); NEUTROPHILS # (AUTO) 7.6 (2.1-6.9); NEUTROPHILS % 83.3 % (38.7-80.0); PLATELET COUNT 353 x10e3/uL (140-360); RED CELL DISTRIBUTION WIDTH 13.8 % (11.7-14.4)
[2017-11-05 15:03] LABS: INR 0.9; PROTHROMBIN TIME 11.4 seconds (11.9-14.5)
[2017-11-05 15:04] LABS: PARTIAL THROMBOPLASTIN TIME 25.8 seconds (23.8-35.5)
[2017-11-05 15:09] LABS: ALANINE AMINOTRANSFERASE 10 IU/L (0-55); ALBUMIN 3.9 g/dL (3.5-5.0); ALKALINE PHOSPHATASE 64 IU/L (40-150); ANION GAP 14.8 mmol/L (8-16); BLOOD UREA NITROGEN 27 mg/dL (7-26); BUN/CREATININE RATIO 33 (6-25); CARBON DIOXIDE 25 mmol/L (22-29); CHLORIDE 103 mmol/L (98-107); CREATINE KINASE 20 IU/L (29-168); CREATININE, SERUM 0.81 mg/dL (0.57-1.11); EST GLOMERULAR FILTRATION RATE > 60 ML/MIN (60-); GLUCOSE 112 mg/dL (74-118); POTASSIUM 3.8 mmol/L (3.5-5.1); SODIUM 139 mmol/L (136-145)
--- NOTE | 2017-11-05 15:11 | Diagnostic Imaging Report ---
PROCEDURE: CHEST SINGLE (PORTABLE) COMPARISON: Patients [facility], DX, CHEST SINGLE (PORTABLE), 08/27/2017, 6:09. INDICATIONS: NAUSEA, DIARRHEA FINDINGS: LUNGS: Nodular opacities overlie the lower lung jimenes in a symmetric location compatible with prominent nipple shadows. Improvement in the bibasilar opacities. The lungs remain hyperexpanded. PLEURA: No effusions or pneumothorax. HEART \T\ MEDIASTINUM: The heart is within normal size-limits. BONES \T\ SOFT TISSUES: No acute findings. CONCLUSION: Hyperexpansion of the lung jimenes compatible with COPD. Iván Becerril D.O. Dictated by: vIán Becerril D.O. on 11/05/2017 at 15:11 Electronically approved by: Iván Becerril D.O. on 11/05/2017 at 15:11
[2017-11-05] MEDS ORDERED: MORPHINE SULFATE 2 MG/ML SYR IV STA (15:17)
--- NOTE | 2017-11-05 16:05 | Diagnostic Imaging Report ---
PROCEDURE: CT ABDOMEN AND PELVIS WITH CONTRAST TECHNIQUE: The abdomen and pelvis were scanned utilizing a multidetector helical scanner from the diaphragm to the lesser trochanter after the IV administration of 100 cc of Isovue 370 and the oral administration of Gastrografin intermixed with water. Coronal and sagittal multiplanar reformations were obtained. DLP: 153.12 mGy*cm COMPARISON: Patients [facility], CT, CT ABDOMEN/PELVIS WO, 08/22/2017, 21:22. INDICATIONS: ABDOMINAL PAIN, STATUS POST NEPHROSTOMY TUBE CHANGE FINDINGS: LOWER THORAX: Right lung is clear. Minimal residual density in the left base is improved in appearance compared to the prior CT. HEPATOBILIARY: No focal hepatic lesions. No biliary ductal dilatation. The gallbladder is absent. SPLEEN: No splenomegaly. PANCREAS: No focal masses or ductal dilatation. ADRENALS: No adrenal nodules. KIDNEYS/URETERS: No hydronephrosis, stones or solid mass lesions. Left nephrostomy catheter within an atrophic left kidney in appropriate position. Air within an upper pole calyx is related to the catheter. PELVIC ORGANS/BLADDER: Unremarkable. Absent uterus and adnexal structures. PERITONEUM / RETROPERITONEUM: No free air or fluid. LYMPH NODES: No lymphadenopathy. VESSELS: Atherosclerotic vascular calcification. GI TRACT: No distention or wall thickening. Left lower quadrant ostomy. BONES AND SOFT TISSUES: Degenerative changes of the spine with disc space narrowing at L5-S1. IMPRESSION: 1. No acute abnormality within the abdomen or pelvis. 2. Atrophic appearing left kidney with appropriate position of a nephrostomy catheter. Iván Becerril D.O. Dictated by: Iván Becerril D.O. on 11/05/2017 at 16:04 Electronically approved by: Iván Becerril D.O. on 11/05/2017 at 16:04
[2017-11-05 16:07] LABS: BILIRUBIN,URINE NEGATIVE (NEGATIVE); CLARITY,URINE CLOUDY (CLEAR); COLOR,URINE YELLOW (YELLOW); KETONES,URINE NEGATIVE (NEGATIVE); LEUKOCYTE ESTERASE ,URINE 2+ (NEGATIVE); NITRITE,URINE NEGATIVE (NEGATIVE); PROTEIN,URINE DIPSTICK 3+ (NEGATIVE); URINE UROBILINOGEN 0.2 mg/dL (0.2 - 1)
[2017-11-05] MEDS ORDERED: LEVOFLOXACIN 500MG/D5W 100ML 100 ML IV ONE (16:15)
[2017-11-05 16:20] LABS: BACTERIA,URINE MODERATE /HPF; EPITHELIAL CELLS,URINE RARE /LPF; RBC,URINE 21-50 /HPF (0-5)
[2017-11-05] MEDS ORDERED: SODIUM CHLORIDE 0.9% 50ML 50 ML ONE (16:26)
[2017-11-05] MEDS ORDERED: IOPAMIDOL 370 MG/ML 200 ML INFUS..BTL INJ ONE (16:27)
[2017-11-05] MEDS ORDERED: MORPHINE SULFATE 2 MG/ML SYR IV PRN (16:30)
[2017-11-05] MEDS ORDERED: ONDANSETRON HCL INJ 2 MG/ML VIAL IV PRN (16:30)
[2017-11-05] MEDS ORDERED: LEVOFLOXACIN 500MG/D5W 100ML 100 ML IV SCH (17:00)
[2017-11-05] MEDS: FAMOTIDINE 20 MG/2 ML VIAL IV SCH (17:10)
[2017-11-05 18:42] VITALS: BP 112/69
[2017-11-05 19:30] VITALS: BP 104/66
[2017-11-05 19:45] VITALS: BP 104/66
[2017-11-05] MEDS: SODIUM CHLORIDE 0.9% 1000ML 1,000 ML IV SCH (22:07)
[2017-11-06] VITALS: BP 111/71
[2017-11-06 04:12] VITALS: BP 111/68
[2017-11-06] MEDS: SODIUM CHLORIDE 0.9% 1000ML 1,000 ML IV SCH (06:00)
[2017-11-06 06:08] LABS: BASOPHILS % 0.7 % (0.0-1.0); EOSINOPHILS # (AUTO) 0.3 (0.0-0.4); EOSINOPHILS % 5.9 % (0.0-6.0); HEMATOCRIT 33.1 % (34.2-44.1); HEMOGLOBIN 10.2 g/dL (12.0-16.0); LYMPHOCYTES # (AUTO) 0.8 (1.0-3.2); MEAN CORPUSCULAR HEMOGLOBIN 31.4 pg (28-32); MEAN CORPUSCULAR HGB CONC 30.8 g/dL (31-35); MEAN CORPUSCULAR VOLUME 101.8 fL (81-99); MONOCYTES # (AUTO) 0.4 (0.2-0.8); NEUTROPHILS # (AUTO) 3.1 (2.1-6.9); NEUTROPHILS % 67.2 % (38.7-80.0); PLATELET COUNT 239 x10e3/uL (140-360); RED BLOOD COUNT 3.25 x10e6/uL (3.6-5.1); RED CELL DISTRIBUTION WIDTH 13.5 % (11.7-14.4)
[2017-11-06 06:35] LABS: ALANINE AMINOTRANSFERASE 9 IU/L (0-55); ALBUMIN 2.8 g/dL (3.5-5.0); ALKALINE PHOSPHATASE 52 IU/L (40-150); ANION GAP 8.5 mmol/L (8-16); BLOOD UREA NITROGEN 16 mg/dL (7-26); BUN/CREATININE RATIO 25 (6-25); CARBON DIOXIDE 23 mmol/L (22-29); CHLORIDE 107 mmol/L (98-107); CREATININE, SERUM 0.65 mg/dL (0.57-1.11); EST GLOMERULAR FILTRATION RATE > 60 ML/MIN (60-); GLUCOSE 78 mg/dL (74-118); LIPASE 24 U/L (8-78); POTASSIUM 3.5 mmol/L (3.5-5.1); SODIUM 135 mmol/L (136-145)
[2017-11-06 07:44] VITALS: BP 125/76
[2017-11-06] MEDS: FAMOTIDINE 20 MG/2 ML VIAL IV SCH ×2 (08:30→16:16)
[2017-11-06 09:10] VITALS: BP 125/76
--- NOTE | 2017-11-06 13:15 | Discharge Summary ---
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 SECONDARY DIAGNOSIS 1. Hypertension. 2. Anxiety. HISTORY: Per H&P. HOSPITAL COURSE: By next day, patient's pain has resolved. Patient is hungry and is eating without any problem. Her abdominal CT was benign, showing the left nephrostomy tube in the right position. Patient will be going home today. She understands that she needs to follow up with her surgeon potentially for hernia repair given recurrent symptoms and weight loss due to frequent vomiting due to pain. I have provided 30 pills of tramadol 50 mg for her with no refills. I suspect that patient has chronic bacteria in her urine. Since she is asymptomatic, will not treat. She did get Levaquin here. Urine culture so far is showing streptococcus. However, likely this is just colonization given her nephrostomy status. Patient likely also has some dehydration due to nausea/vomiting, which has resolved after IV fluid. CONDITION ON DISCHARGE: Stable. DISCHARGE MEDICATIONS: Please see medication reconciliation form. LANETTE CHRISTIANSON M.D. Job#: [id number]
== END 2017-11-06 17:28 | disposition home or self-care (01) | DRG 394 ==
LOC: ER 13:25 → ERHOLD 16:28 → MED/SURG 16:58 → MED/SURG2 17:21 → OBSVTOIN 11-06 10:41
PROVIDERS: ADMIT Internal Medicine; ATTEND Internal Medicine
DX: K43.5 Parastomal hernia without obstruction or gangrene (principal); N39.0 Urinary tract infection, site not specified; I10 Essential (primary) hypertension; Z93.3 Colostomy status; R63.4 Abnormal weight loss; Z22.338 Carrier of other streptococcus; F41.9 Anxiety disorder, unspecified; Z93.6 Other artificial openings of urinary tract status; E86.0 Dehydration
CPT/HCPCS: 36415; 71045; 74177; 80053; 81001; 82550; 82553; 83605; 83690; 84484; 85025; 85610; 85730; 87040; 87086; 87186; 87493; 93005; 99284; G0378; J1956; J2270; J2405; J7030; Q9967

== ENCOUNTER 2019-12-02 12:45 | Emergency (ER) | payer MEDICARE, OTHER ==
[~2019-12-02] VITALS: Ht 157.5 cm; Wt 64.6 kg
== END 2019-12-02 13:20 | disposition home or self-care (01) ==
LOC: FSED 12:45
DX: K08.89 Other specified disorders of teeth and supporting structures (principal); K02.9 Dental caries, unspecified
CPT/HCPCS: 99282

== ENCOUNTER 2021-07-22 09:38 | Inpatient (IN) | payer MEDICARE ==
[~2021-07-22] VITALS: Ht 154.9 cm; Wt 73.9 kg
[2021-07-22] MEDS ORDERED: Morphine 4mg Syringe 4 MG/ML INJ IV STA ×2 (11:00→17:19)
[2021-07-22] MEDS ORDERED: ONDANSETRON HCL INJ 2MG/ML 2ML 2 MG/ML VIAL IV STA (11:00)
[2021-07-22] MEDS ORDERED: Morphine 4mg Syringe 4 MG/ML INJ ONE ×2 (11:17→17:34)
[2021-07-22] MEDS ORDERED: ONDANSETRON HCL INJ 2MG/ML 2ML 2 MG/ML VIAL ONE (11:17)
[2021-07-22] MEDS ORDERED: SODIUM CHLORIDE 0.9% 500ML 500 ML ONE (11:18)
[2021-07-22] MEDS ORDERED: IOPAMIDOL 370 MG/ML 200 ML INFUS..BTL INJ ONE (11:41)
[2021-07-22] MEDS ORDERED: SODIUM CHLORIDE 0.9% 50ML 50 ML ONE ×2 (11:42→13:12)
[2021-07-22] MEDS ORDERED: PIPERACILLIN/TAZOBACTAM 3.375 GM VIAL ONE ×2 (13:12→17:34)
[2021-07-22] MEDS: PIPERACILLIN/TAZOBACTAM 3.375 GM in SODIUM CHLORIDE 0.9% 50ML 50 ML IV SCH ×3 (13:12→23:48)
[2021-07-22] MEDS ORDERED: ONDANSETRON HCL INJ 2MG/ML 2ML 2 MG/ML VIAL IV PRN (13:15)
[2021-07-22] MEDS ORDERED: Morphine 4mg Syringe 4 MG/ML INJ IV PRN (13:15)
[2021-07-22] MEDS ORDERED: SODIUM CHLORIDE 0.9% 1000ML 1,000 ML IV STA (13:43)
[2021-07-22] MEDS ORDERED: ACETAMINOPHEN 325 MG TAB PO STA (13:46)
[2021-07-22] MEDS ORDERED: ACETAMINOPHEN 325 MG TAB ONE (13:51)
[2021-07-22] MEDS ORDERED: SODIUM CHLORIDE 0.9% 1000ML 1,000 ML ONE ×2 (14:27→17:34)
[2021-07-22] MEDS ORDERED: KETOROLAC TROMETHAMINE 30 MG/ML VIAL IV STA (14:49)
[2021-07-22] MEDS ORDERED: KETOROLAC TROMETHAMINE 30 MG/ML VIAL ONE (15:03)
[2021-07-22] MEDS: SODIUM CHLORIDE 0.9% 1000ML 1,000 ML IV SCH ×2 (17:29→17:30)
[2021-07-22] MEDS ORDERED: SODIUM CHLORIDE 0.9% 100 ML ONE (17:35)
[2021-07-22 20:44] VITALS: BP 96/57
[2021-07-22 23:09] VITALS: BP 96/57
[2021-07-22 23:18] VITALS: BP 96/57
[2021-07-23] VITALS (19 sets, daily range): BP systolic 82–128; BP diastolic 43–71
[2021-07-23] MEDS ORDERED: DEXTROSE 50% SYRINGE 50 ML IV PRN (01:45)
[2021-07-23] MEDS ORDERED: HYDRALAZINE HCL 20 MG/ML VIAL IV PRN (01:45)
[2021-07-23] MEDS ORDERED: DOCUSATE SODIUM 100 MG CAP PO PRN (01:45)
[2021-07-23] MEDS ORDERED: SIMETHICONE 80 MG CHEW PO PRN (01:45)
[2021-07-23] MEDS ORDERED: POTASSIUM CHLORIDE 20 MEQ TAB CR PO PRN (01:45)
[2021-07-23] MEDS ORDERED: BENZONATATE 100 MG CAP PO PRN (01:45)
[2021-07-23] MEDS ORDERED: ALBUTEROL/IPRATROPIUM 3 ML NEB NEB PRN (01:45)
[2021-07-23] MEDS ORDERED: LIDOCAINE 4% PATCH TP PRN (01:45)
[2021-07-23] MEDS ORDERED: DIPHENHYDRAMINE HCL 25 MG CAP PO PRN (01:45)
[2021-07-23] MEDS ORDERED: MELATONIN 5 MG TABLET PO PRN ×2 (01:45→21:00)
[2021-07-23] MEDS ORDERED: KETOROLAC TROMETHAMINE 30 MG/ML VIAL IV PRN (02:00)
[2021-07-23] MEDS: MEROPENEM 500 MG in SODIUM CHLORIDE 0.9% 50ML 50 ML IV SCH ×3 (02:54→18:16)
[2021-07-23] MEDS: MIDODRINE 2.5 MG TAB PO SCH ×4 (02:55→16:52)
[2021-07-23 06:12] LABS: ALBUMIN 2.9 g/dL (3.5-5.0); ALBUMIN/GLOBULIN RATIO 0.9 (0.8-2.0); ANION GAP 17.6 mmol/L (8-16); CALCIUM 8.3 mg/dL (8.4-10.2); CREATININE, SERUM 3.09 mg/dL (0.57-1.11); MAGNESIUM 1.5 MG/DL (1.3-2.1); POTASSIUM 3.6 mmol/L (3.5-5.1)
[2021-07-23] MEDS: SODIUM CHLORIDE 0.9% 1000ML 1,000 ML IV SCH (06:13)
[2021-07-23] MEDS: ACETAMINOPHEN 325 MG TAB PO PRN (06:33)
[2021-07-23 07:20] LABS: THYROID STIMULATING HORMONE 0.443 uIU/mL (0.350-4.940)
[2021-07-23 07:42] LABS: BASOPHILS % 0.1 % (0.0-1.0); EOSINOPHILS % 0.1 % (0.0-6.0); HEMATOCRIT 42.3 % (34.2-44.1); HEMOGLOBIN 13.3 g/dL (12.0-16.0); LYMPHOCYTES # (AUTO) 0.6 (1.0-3.2); LYMPHOCYTES % 1.9 % (18.0-39.1); MEAN CORPUSCULAR HGB CONC 31.4 g/dL (31-35); MEAN CORPUSCULAR VOLUME 101.9 fL (81-99); MONOCYTES # (AUTO) 0.9 (0.2-0.8); MONOCYTES % 2.7 % (4.4-11.3); NEUTROPHILS # (AUTO) 28.9 (2.1-6.9); NEUTROPHILS % 90.6 % (38.7-80.0); RED BLOOD COUNT 4.15 x10e6/uL (3.6-5.1); RED CELL DISTRIBUTION WIDTH 13.9 % (11.7-14.4)
[2021-07-23 07:45] LABS: PLATELET COUNT 73 x10e3/uL (140-360)
[2021-07-23] MEDS: PANTOPRAZOLE SOD 40 MG TABEC PO SCH (09:07)
[2021-07-23] MEDS: ESCITALOPRAM OXALATE 10 MG TAB PO SCH (09:07)
[2021-07-23] MEDS ORDERED: SODIUM CHLORIDE 0.9% 1000ML 1,000 ML IV ONE (09:15)
[2021-07-23 09:50] LABS: BAND NEUTROPHILS % (MANUAL) 16 %; EOSINOPHILS % (MANUAL) 1 % (0-7); LYMPHOCYTES % (MANUAL) 3 % (19-48); METAMYELOCYTES % (MANUAL) 2 % (0-0); NEUTROPHILS % (MANUAL) 78 % (40-74); PLATELET ESTIMATE MODERATELY DECREASED; PLATELET MORPHOLOGY COMMENT NORMAL; RBC MORPHOLOGY COMMENT NORMAL
[2021-07-23 10:07] LABS: CLARITY,URINE CLOUDY (CLEAR); COLOR,URINE YELLOW (YELLOW); KETONES,URINE NEGATIVE (NEGATIVE); LEUKOCYTE ESTERASE ,URINE SMALL (NEGATIVE); NITRITE,URINE NEGATIVE (NEGATIVE); PROTEIN,URINE DIPSTICK >=300 (NEGATIVE); URINE UROBILINOGEN 0.2 mg/dL (0.2 - 1)
[2021-07-23 10:27] LABS: BACTERIA,URINE MODERATE /HPF; EPITHELIAL CELLS,URINE MODERATE /LPF; RBC,URINE >50 /HPF (0-5); WBC,URINE (MAN) >50 /HPF (0-5)
[2021-07-23] MEDS ORDERED: Vancomycin IV 1 GM in SODIUM CHLORIDE 0.9% 250ML 250 ML IV SCH ×4 (11:30)
[2021-07-23 11:48] LABS: INR 1.14; PROTHROMBIN TIME 15.5 seconds (11.9-14.5)
[2021-07-23] MEDS: SODIUM BICARBONATE 8.4% SYRING 150 ML in DEXTROSE 5% 1,000 ML IV SCH ×2 (12:00→21:27)
[2021-07-23] MEDS ORDERED: LIDOCAINE HCL 1% LOCAL INJ 20 ML VIAL ONE (13:28)
[2021-07-23] MEDS ORDERED: MIDAZOLAM HCL 2 MG/2 ML VIAL ONE (14:48)
[2021-07-23] MEDS ORDERED: FENTANYL CITRATE/PF 100MCG/2 ML INJ ONE (14:48)
[2021-07-23] MEDS: SODIUM BICARBONATE 650 MG TAB PO SCH (16:53)
[2021-07-23] MEDS: ENOXAPARIN SOD INJ 40 MG/0.4 ML SYR SC SCH (16:53)
[2021-07-24] VITALS (15 sets, daily range): BP systolic 119–162; BP diastolic 60–91
[2021-07-24] MEDS: MEROPENEM 500 MG in SODIUM CHLORIDE 0.9% 50ML 50 ML IV SCH ×2 (06:13→17:43)
[2021-07-24] MEDS: SODIUM BICARBONATE 8.4% SYRING 150 ML in DEXTROSE 5% 1,000 ML IV SCH (06:14)
[2021-07-24] MEDS: ACETAMINOPHEN 325 MG TAB PO PRN (06:14)
[2021-07-24 07:49] LABS: BASOPHILS # (AUTO) 0.1 (0.0-0.1); BASOPHILS % 0.4 % (0.0-1.0); EOSINOPHILS % 0.1 % (0.0-6.0); HEMATOCRIT 33.6 % (34.2-44.1); HEMOGLOBIN 10.9 g/dL (12.0-16.0); LYMPHOCYTES # (AUTO) 0.7 (1.0-3.2); LYMPHOCYTES % 2.2 % (18.0-39.1); MEAN CORPUSCULAR HEMOGLOBIN 31.5 pg (28-32); MEAN CORPUSCULAR HGB CONC 32.4 g/dL (31-35); MEAN CORPUSCULAR VOLUME 97.1 fL (81-99); MONOCYTES # (AUTO) 0.9 (0.2-0.8); MONOCYTES % 2.7 % (4.4-11.3); NEUTROPHILS # (AUTO) 26.6 (2.1-6.9); NEUTROPHILS % 81.9 % (38.7-80.0); RED BLOOD COUNT 3.46 x10e6/uL (3.6-5.1); RED CELL DISTRIBUTION WIDTH 13.9 % (11.7-14.4)
[2021-07-24 07:51] LABS: PLATELET COUNT 75 x10e3/uL (140-360)
[2021-07-24] MEDS: ESCITALOPRAM OXALATE 10 MG TAB PO SCH (08:01)
[2021-07-24] MEDS: MIDODRINE 2.5 MG TAB PO SCH ×2 (08:01→10:59)
[2021-07-24] MEDS: SODIUM BICARBONATE 650 MG TAB PO SCH (08:01)
[2021-07-24] MEDS: PANTOPRAZOLE SOD 40 MG TABEC PO SCH (08:01)
[2021-07-24 08:18] LABS: ANION GAP 14.3 mmol/L (8-16); CREATININE, SERUM 2.33 mg/dL (0.57-1.11); POTASSIUM 3.3 mmol/L (3.5-5.1)
[2021-07-24 08:20] LABS: CALCIUM 6.8 mg/dL (8.4-10.2)
[2021-07-24] MEDS: TRAMADOL HCL 50 MG TAB PO PRN (08:39)
[2021-07-24 08:40] LABS: BAND NEUTROPHILS % (MANUAL) 9 %; EOSINOPHILS % (MANUAL) 1 % (0-7); LYMPHOCYTES % (MANUAL) 3 % (19-48); METAMYELOCYTES % (MANUAL) 2 % (0-0); MONOCYTES % (MANUAL) 6 % (3.4-9.0); MYELOCYTES % (MANUAL) 2 % (0-0); NEUTROPHILS % (MANUAL) 77 % (40-74)
[2021-07-24 08:41] LABS: PLATELET ESTIMATE MODERATELY DECREASED; PLATELET MORPHOLOGY COMMENT FEW LARGE
[2021-07-24 08:42] LABS: RBC MORPHOLOGY COMMENT NORMAL
[2021-07-24] MEDS: ONDANSETRON HCL INJ 2MG/ML 2ML 2 MG/ML VIAL IV PRN ×2 (10:00→17:40)
[2021-07-24] MEDS ORDERED: SODIUM CHLORIDE 0.9% 50ML 50 ML ONE (15:05)
[2021-07-24] MEDS ORDERED: POTASSIUM CHLORIDE 20 MEQ TAB CR PO ONE (15:30)
[2021-07-24] MEDS ORDERED: CALCIUM GLUCONATE 10% INJ 9.3 MEQ in SODIUM CHLORIDE 0.9% 100 ML 100 ML IV ONE (15:45)
[2021-07-24] MEDS: ENOXAPARIN SOD INJ 40 MG/0.4 ML SYR SC SCH (17:10)
[2021-07-25] VITALS (7 sets, daily range): BP systolic 157–185; BP diastolic 76–94
[2021-07-25] MEDS: MEROPENEM 500 MG in SODIUM CHLORIDE 0.9% 50ML 50 ML IV SCH ×3 (06:05→21:55)
[2021-07-25] MEDS: TRAMADOL HCL 50 MG TAB PO PRN (06:05)
[2021-07-25 06:27] LABS: HEMATOCRIT 37.2 % (34.2-44.1); HEMOGLOBIN 12.4 g/dL (12.0-16.0); LYMPHOCYTES # (AUTO) 0.9 (1.0-3.2); LYMPHOCYTES % 2.6 % (18.0-39.1); MEAN CORPUSCULAR HEMOGLOBIN 31.9 pg (28-32); MEAN CORPUSCULAR HGB CONC 33.3 g/dL (31-35); MEAN CORPUSCULAR VOLUME 95.6 fL (81-99); MONOCYTES # (AUTO) 1.2 (0.2-0.8); MONOCYTES % 3.1 % (4.4-11.3); NEUTROPHILS # (AUTO) 33.5 (2.1-6.9); NEUTROPHILS % 91.4 % (38.7-80.0); PLATELET COUNT 87 x10e3/uL (140-360); RED BLOOD COUNT 3.89 x10e6/uL (3.6-5.1); RED CELL DISTRIBUTION WIDTH 13.8 % (11.7-14.4)
[2021-07-25 06:49] LABS: CALCIUM 8.1 mg/dL (8.4-10.2); CREATININE, SERUM 1.77 mg/dL (0.57-1.11)
[2021-07-25 08:18] LABS: LYMPHOCYTES % (MANUAL) 3 % (19-48); MONOCYTES % (MANUAL) 4 % (3.4-9.0); NEUTROPHILS % (MANUAL) 93 % (40-74); PLATELET ESTIMATE MODERATELY DECREASED; PLATELET MORPHOLOGY COMMENT NORMAL; RBC MORPHOLOGY COMMENT NORMAL
[2021-07-25] MEDS: PANTOPRAZOLE SOD 40 MG TABEC PO SCH (08:52)
[2021-07-25] MEDS: ESCITALOPRAM OXALATE 10 MG TAB PO SCH (08:52)
[2021-07-25] MEDS ORDERED: SODIUM CHLORIDE 0.9% 500ML 500 ML IV ONE (14:15)
[2021-07-25] MEDS ORDERED: SODIUM CHLORIDE 0.9% 1000ML 1,000 ML IV SCH (14:15)
[2021-07-25] MEDS: NIFEDIPINE CR 30 MG TAB PO SCH (14:37)
[2021-07-25] MEDS: MEGACE 400MG/ 10ML CUP PO SCH (15:25)
[2021-07-25 15:38] LABS: BASOPHILS # (AUTO) 0.2 (0.0-0.1); BASOPHILS % 0.5 % (0.0-1.0); HEMATOCRIT 37.2 % (34.2-44.1); HEMOGLOBIN 12.1 g/dL (12.0-16.0); LYMPHOCYTES # (AUTO) 0.8 (1.0-3.2); LYMPHOCYTES % 2.2 % (18.0-39.1); MEAN CORPUSCULAR HEMOGLOBIN 31.5 pg (28-32); MEAN CORPUSCULAR HGB CONC 32.5 g/dL (31-35); MEAN CORPUSCULAR VOLUME 96.9 fL (81-99); MONOCYTES # (AUTO) 1.3 (0.2-0.8); MONOCYTES % 3.3 % (4.4-11.3); NEUTROPHILS # (AUTO) 35.2 (2.1-6.9); NEUTROPHILS % 93.1 % (38.7-80.0); PLATELET COUNT 83 x10e3/uL (140-360); RED BLOOD COUNT 3.84 x10e6/uL (3.6-5.1); RED CELL DISTRIBUTION WIDTH 13.6 % (11.7-14.4)
[2021-07-25 15:55] LABS: ANION GAP 19.8 mmol/L (8-16); CALCIUM 8.3 mg/dL (8.4-10.2); CREATININE, SERUM 1.54 mg/dL (0.57-1.11); POTASSIUM 3.8 mmol/L (3.5-5.1)
[2021-07-25 16:29] LABS: BAND NEUTROPHILS % (MANUAL) 3 %; LYMPHOCYTES % (MANUAL) 1 % (19-48); METAMYELOCYTES % (MANUAL) 7 % (0-0); MONOCYTES % (MANUAL) 1 % (3.4-9.0); NEUTROPHILS % (MANUAL) 88 % (40-74)
[2021-07-25] MEDS: DEXTROSE 5%/0.9% SOD CHL 1,000 ML IV SCH (16:29)
[2021-07-25] MEDS: ENOXAPARIN SOD INJ 40 MG/0.4 ML SYR SC SCH (16:29)
[2021-07-25 16:30] LABS: PLATELET ESTIMATE SLIGHTLY DECREASED; PLATELET MORPHOLOGY COMMENT NORMAL; RBC MORPHOLOGY COMMENT NORMAL
[2021-07-25 18:33] LABS: ANION GAP 14.8 mmol/L (8-16); CREATININE, SERUM 1.45 mg/dL (0.57-1.11); POTASSIUM 3.8 mmol/L (3.5-5.1)
[2021-07-25] MEDS ORDERED: SODIUM CHLORIDE 0.9% 50ML 50 ML ONE (21:25)
[2021-07-25] MEDS ORDERED: IOPAMIDOL 370 MG/ML 200 ML INFUS..BTL INJ ONE (21:25)
[2021-07-26] VITALS (8 sets, daily range): BP systolic 116–151; BP diastolic 57–98
[2021-07-26] MEDS: DEXTROSE 5%/0.9% SOD CHL 1,000 ML IV SCH ×2 (03:50→13:45)
[2021-07-26] MEDS: MEROPENEM 500 MG in SODIUM CHLORIDE 0.9% 50ML 50 ML IV SCH ×3 (05:15→21:41)
[2021-07-26 05:33] LABS: EOSINOPHILS % 0.1 % (0.0-6.0); HEMATOCRIT 36.8 % (34.2-44.1); HEMOGLOBIN 12.4 g/dL (12.0-16.0); LYMPHOCYTES # (AUTO) 0.9 (1.0-3.2); LYMPHOCYTES % 2.9 % (18.0-39.1); MEAN CORPUSCULAR HEMOGLOBIN 31.7 pg (28-32); MEAN CORPUSCULAR HGB CONC 33.7 g/dL (31-35); MEAN CORPUSCULAR VOLUME 94.1 fL (81-99); MONOCYTES # (AUTO) 1.5 (0.2-0.8); NEUTROPHILS % 90.8 % (38.7-80.0); PLATELET COUNT 81 x10e3/uL (140-360); RED BLOOD COUNT 3.91 x10e6/uL (3.6-5.1); RED CELL DISTRIBUTION WIDTH 13.7 % (11.7-14.4)
[2021-07-26 05:48] LABS: ANION GAP 11.2 mmol/L (8-16); CALCIUM 7.8 mg/dL (8.4-10.2); CREATININE, SERUM 1.17 mg/dL (0.57-1.11); POTASSIUM 3.2 mmol/L (3.5-5.1)
[2021-07-26 06:42] LABS: LYMPHOCYTES % (MANUAL) 1 % (19-48); MONOCYTES % (MANUAL) 4 % (3.4-9.0); NEUTROPHILS % (MANUAL) 95 % (40-74)
[2021-07-26 06:43] LABS: PLATELET ESTIMATE MODERATELY DECREASED; PLATELET MORPHOLOGY COMMENT NORMAL; RBC MORPHOLOGY COMMENT NORMAL
[2021-07-26] MEDS: NIFEDIPINE CR 30 MG TAB PO SCH (09:20)
[2021-07-26] MEDS: MEGACE 400MG/ 10ML CUP PO SCH (09:20)
[2021-07-26] MEDS: ESCITALOPRAM OXALATE 10 MG TAB PO SCH (09:20)
[2021-07-26] MEDS: PANTOPRAZOLE SOD 40 MG TABEC PO SCH (09:20)
[2021-07-26] MEDS ORDERED: POTASSIUM CHLORIDE 20 MEQ TAB CR PO ONE (13:12)
[2021-07-26] MEDS: ENOXAPARIN SOD INJ 40 MG/0.4 ML SYR SC SCH (15:28)
[2021-07-27] VITALS (7 sets, daily range): BP systolic 133–172; BP diastolic 75–94
[2021-07-27] MEDS: DEXTROSE 5%/0.9% SOD CHL 1,000 ML IV SCH (01:21)
[2021-07-27] MEDS: ACETAMINOPHEN 325 MG TAB PO PRN ×2 (03:27→13:56)
[2021-07-27 05:23] LABS: BASOPHILS # (AUTO) 0.1 (0.0-0.1); BASOPHILS % 0.6 % (0.0-1.0); EOSINOPHILS # (AUTO) 0.2 (0.0-0.4); EOSINOPHILS % 1.1 % (0.0-6.0); HEMATOCRIT 40.5 % (34.2-44.1); HEMOGLOBIN 13.1 g/dL (12.0-16.0); LYMPHOCYTES % 7.2 % (18.0-39.1); MEAN CORPUSCULAR HEMOGLOBIN 31.4 pg (28-32); MEAN CORPUSCULAR HGB CONC 32.3 g/dL (31-35); MEAN CORPUSCULAR VOLUME 97.1 fL (81-99); MONOCYTES # (AUTO) 1.3 (0.2-0.8); MONOCYTES % 8.8 % (4.4-11.3); NEUTROPHILS # (AUTO) 11.4 (2.1-6.9); NEUTROPHILS % 78.6 % (38.7-80.0); PLATELET COUNT 83 x10e3/uL (140-360); RED BLOOD COUNT 4.17 x10e6/uL (3.6-5.1); RED CELL DISTRIBUTION WIDTH 13.7 % (11.7-14.4)
[2021-07-27 05:46] LABS: ANION GAP 9.5 mmol/L (8-16); CALCIUM 7.9 mg/dL (8.4-10.2); CREATININE, SERUM 0.82 mg/dL (0.57-1.11); POTASSIUM 3.5 mmol/L (3.5-5.1)
[2021-07-27] MEDS: MEROPENEM 500 MG in SODIUM CHLORIDE 0.9% 50ML 50 ML IV SCH ×3 (06:02→21:03)
[2021-07-27] MEDS: PANTOPRAZOLE SOD 40 MG TABEC PO SCH (08:30)
[2021-07-27] MEDS: ESCITALOPRAM OXALATE 10 MG TAB PO SCH (08:43)
[2021-07-27] MEDS: NIFEDIPINE CR 30 MG TAB PO SCH (08:45)
[2021-07-27] MEDS: MEGACE 400MG/ 10ML CUP PO SCH (08:45)
[2021-07-27] MEDS: ENOXAPARIN SOD INJ 40 MG/0.4 ML SYR SC SCH (17:12)
[2021-07-28] VITALS (9 sets, daily range): BP systolic 131–175; BP diastolic 80–89
[2021-07-28] MEDS: MEROPENEM 500 MG in SODIUM CHLORIDE 0.9% 50ML 50 ML IV SCH ×3 (05:51→22:00)
[2021-07-28] MEDS: MEGACE 400MG/ 10ML CUP PO SCH (09:42)
[2021-07-28] MEDS: ESCITALOPRAM OXALATE 10 MG TAB PO SCH (09:42)
[2021-07-28] MEDS: NIFEDIPINE CR 30 MG TAB PO SCH (09:42)
[2021-07-28] MEDS: PANTOPRAZOLE SOD 40 MG TABEC PO SCH (09:42)
[2021-07-28] MEDS: ENOXAPARIN SOD INJ 40 MG/0.4 ML SYR SC SCH (17:07)
[2021-07-29] VITALS (8 sets, daily range): BP systolic 120–165; BP diastolic 59–92
[2021-07-29] MEDS: MEROPENEM 500 MG in SODIUM CHLORIDE 0.9% 50ML 50 ML IV SCH ×3 (06:00→22:14)
[2021-07-29 06:38] LABS: ALBUMIN 2.4 g/dL (3.5-5.0); ALBUMIN/GLOBULIN RATIO 0.6 (0.8-2.0); CALCIUM 8.6 mg/dL (8.4-10.2); CREATININE, SERUM 0.84 mg/dL (0.57-1.11)
[2021-07-29 07:31] LABS: BASOPHILS # (AUTO) 0.1 (0.0-0.1); BASOPHILS % 0.6 % (0.0-1.0); EOSINOPHILS # (AUTO) 0.4 (0.0-0.4); EOSINOPHILS % 3.5 % (0.0-6.0); HEMATOCRIT 41.3 % (34.2-44.1); HEMOGLOBIN 13.5 g/dL (12.0-16.0); LYMPHOCYTES % 7.6 % (18.0-39.1); MEAN CORPUSCULAR HGB CONC 32.7 g/dL (31-35); MEAN CORPUSCULAR VOLUME 94.9 fL (81-99); MONOCYTES # (AUTO) 1.2 (0.2-0.8); MONOCYTES % 9.5 % (4.4-11.3); NEUTROPHILS # (AUTO) 9.6 (2.1-6.9); NEUTROPHILS % 77.2 % (38.7-80.0); RED BLOOD COUNT 4.35 x10e6/uL (3.6-5.1); RED CELL DISTRIBUTION WIDTH 13.5 % (11.7-14.4)
[2021-07-29 07:33] LABS: PLATELET COUNT 157 x10e3/uL (140-360)
[2021-07-29] MEDS: NIFEDIPINE CR 30 MG TAB PO SCH ×2 (09:00→10:13)
[2021-07-29] MEDS: MEGACE 400MG/ 10ML CUP PO SCH (09:50)
[2021-07-29] MEDS: PANTOPRAZOLE SOD 40 MG TABEC PO SCH (09:50)
[2021-07-29] MEDS: ESCITALOPRAM OXALATE 10 MG TAB PO SCH (09:50)
[2021-07-29] MEDS ORDERED: ONDANSETRON HCL 4 MG ORAL DISINTEGRATING TAB PO PRN (11:45)
[2021-07-29] MEDS: ENOXAPARIN SOD INJ 40 MG/0.4 ML SYR SC SCH (18:05)
[2021-07-30] VITALS: BP 133/81
[2021-07-30 06:08] LABS: BASOPHILS % 0.4 % (0.0-1.0); EOSINOPHILS # (AUTO) 0.4 (0.0-0.4); EOSINOPHILS % 3.9 % (0.0-6.0); HEMATOCRIT 38.4 % (34.2-44.1); HEMOGLOBIN 12.9 g/dL (12.0-16.0); LYMPHOCYTES # (AUTO) 0.8 (1.0-3.2); LYMPHOCYTES % 7.6 % (18.0-39.1); MEAN CORPUSCULAR HEMOGLOBIN 31.5 pg (28-32); MEAN CORPUSCULAR HGB CONC 33.6 g/dL (31-35); MEAN CORPUSCULAR VOLUME 93.7 fL (81-99); MONOCYTES % 10.5 % (4.4-11.3); NEUTROPHILS # (AUTO) 7.5 (2.1-6.9); NEUTROPHILS % 76.5 % (38.7-80.0); PLATELET COUNT 194 x10e3/uL (140-360); RED CELL DISTRIBUTION WIDTH 13.4 % (11.7-14.4)
[2021-07-30 06:29] LABS: ANION GAP 12.9 mmol/L (8-16); CALCIUM 8.6 mg/dL (8.4-10.2); CREATININE, SERUM 1.01 mg/dL (0.57-1.11); POTASSIUM 3.9 mmol/L (3.5-5.1)
[2021-07-30 08:35] VITALS: BP 133/81
[2021-07-30 08:49] VITALS: BP 186/92
[2021-07-30] MEDS: NIFEDIPINE CR 30 MG TAB PO SCH (09:12)
[2021-07-30] MEDS: ESCITALOPRAM OXALATE 10 MG TAB PO SCH (09:12)
[2021-07-30] MEDS: PANTOPRAZOLE SOD 40 MG TABEC PO SCH (09:12)
[2021-07-30 09:39] VITALS: BP 160/60
[2021-07-30] MEDS ORDERED: MEROPENEM 500 MG in SODIUM CHLORIDE 0.9% 50ML 50 ML IV SCH (09:45)
[2021-07-30] MEDS ORDERED: NIFEDIPINE ER30 M1 PO (11:11)
[2021-07-30 11:46] VITALS: BP 153/84
== END 2021-07-30 11:45 | disposition home or self-care (01) | DRG 853 ==
LOC: FSED 10:23 → ERHOLD 14:10 → MED/SURG3 18:44 → ICU 07-23 16:23 → MED/SURG3 07-24 10:35
PROVIDERS: ADMIT Internal Medicine; ATTEND Internal Medicine
PROC: 0JH63XZ Insertion of Tunneled Vascular Access Device into Chest Subcutaneous Tissue and Fascia, Percutaneous Approach (ICD-10-PCS; principal; 2021-07-23)
PROC: 0T133JD Bypass Right Kidney Pelvis to Cutaneous with Synthetic Substitute, Percutaneous Approach (ICD-10-PCS; 2021-07-23)
PROC: 02HV33Z Insertion of Infusion Device into Superior Vena Cava, Percutaneous Approach (ICD-10-PCS; 2021-07-23)
PROC: B548ZZA Ultrasonography of Superior Vena Cava, Guidance (ICD-10-PCS; 2021-07-23)
DX: A41.9 Sepsis, unspecified organism (principal); R65.21 Severe sepsis with septic shock; N13.6 Pyonephrosis; N17.9 Acute kidney failure, unspecified; E87.2 Acidosis; Z16.342 Resistance to multiple antimycobacterial drugs; Z16.12 Extended spectrum beta lactamase (ESBL) resistance; I10 Essential (primary) hypertension; K43.9 Ventral hernia without obstruction or gangrene; F32.A Depression, unspecified; Z82.49 Family history of ischemic heart disease and other diseases of the circulatory system; Z83.3 Family history of diabetes mellitus; D69.6 Thrombocytopenia, unspecified; B96.20 Unspecified Escherichia coli [E. coli] as the cause of diseases classified elsewhere; E66.9 Obesity, unspecified; M25.511 Pain in right shoulder; B96.4 Proteus (mirabilis) (morganii) as the cause of diseases classified elsewhere; Z20.822 Contact with and (suspected) exposure to COVID-19; Z68.30 Body mass index [BMI] 30.0-30.9, adult
CPT/HCPCS: 36415; 36558; 50430; 71045; 74018; 74177; 74470; 76937; 76942; 77001; 80048; 80053; 80076; 81001; 82948; 83036; 83605; 83735; 84145; 84443; 85025; 85610; 87040; 87071; 87086; 87186; 87205; 93005; 94799; 96376; 97139; 99284; J0360; J0610; J1650; J1885; J2001; J2185; J2250; J2270; J2405; J2543; J3010; J3370; J7030; J7040; J7042; J7050; J7070; Q9967; U0002

== ENCOUNTER → 2021-08-26 | Outpatient (CLI) | payer MEDICARE ==
[~2021-08-26] MED LIST changes: +NIFEDIPINE ER30 M1 PO
== END ==
LOC: DX 09:41
PROVIDERS: ATTEND Internal Medicine
DX: Z45.2 Encounter for adjustment and management of vascular access device (principal)
CPT/HCPCS: 36589; 71045

== ENCOUNTER → 2021-09-20 | Day surgery (SDC) | payer MEDICARE ==
[2021-09-18 10:22] LABS: BASOPHILS # (AUTO) 0.1 (0.0-0.1); BASOPHILS % 0.7 % (0.0-1.0); EOSINOPHILS # (AUTO) 0.3 (0.0-0.4); EOSINOPHILS % 3.3 % (0.0-6.0); HEMATOCRIT 37.7 % (34.2-44.1); HEMOGLOBIN 11.8 g/dL (12.0-16.0); LYMPHOCYTES # (AUTO) 0.7 (1.0-3.2); LYMPHOCYTES % 9.3 % (18.0-39.1); MEAN CORPUSCULAR HEMOGLOBIN 30.8 pg (28-32); MEAN CORPUSCULAR HGB CONC 31.3 g/dL (31-35); MEAN CORPUSCULAR VOLUME 98.4 fL (81-99); MONOCYTES # (AUTO) 0.7 (0.2-0.8); MONOCYTES % 9.7 % (4.4-11.3); NEUTROPHILS # (AUTO) 5.8 (2.1-6.9); NEUTROPHILS % 76.7 % (38.7-80.0); PLATELET COUNT 303 x10e3/uL (140-360); RED BLOOD COUNT 3.83 x10e6/uL (3.6-5.1); RED CELL DISTRIBUTION WIDTH 13.2 % (11.7-14.4)
[~2021-09-20] MED LIST changes: +BACTRIM 400-801 EACH PO; +CEFTRIAXONE 1 GM VIAL ONE; +DEXAMETHASONE SOD PHOS INJ 4 MG/ML SDV ONE; +EPHEDRINE SULFATE INJ 50 MG/ML VIAL ONE; +FENTANYL CITRATE/PF 100MCG/2 ML INJ ONE; +LIDOCAINE HCL 2% LOCAL INJ 5 ML SDV VIAL INJ ONE; +MIDAZOLAM HCL 2 MG/2 ML VIAL ONE; +ONDANSETRON HCL INJ 2MG/ML 2ML 2 MG/ML VIAL ONE; +POVIDONE IODINE 0.05% 0.05 % ML PO ONE; +PROPOFOL IV EMULSION 10 MG/ML 20 ML VIAL ONE; +SEVOFLURANE INHAL SOLN 250 ML PEN BTL ONE; +SODIUM CHLORIDE 0.9% 50ML 50 ML ONE
[2021-09-20 10:00] VITALS: BP 135/80
== END | disposition home or self-care (01) ==
LOC: OR 06:06
PROVIDERS: ATTEND Urology
DX: N13.30 Unspecified hydronephrosis (principal); N28.89 Other specified disorders of kidney and ureter; I10 Essential (primary) hypertension; Z88.6 Allergy status to analgesic agent; Z01.812 Encounter for preprocedural laboratory examination; Z01.818 Encounter for other preprocedural examination; Z20.822 Contact with and (suspected) exposure to COVID-19
CPT/HCPCS: 36415; 52005; 71046; 74018; 74420; 85025; 93005; C1758; J0696; U0002; J1100; J2001; J2250; J2405; J3010

== ENCOUNTER → 2021-10-18 | Outpatient (CLI) | payer MEDICARE ==
[~2021-10-18] MED LIST changes: -CEFTRIAXONE 1 GM VIAL ONE; -DEXAMETHASONE SOD PHOS INJ 4 MG/ML SDV ONE; -EPHEDRINE SULFATE INJ 50 MG/ML VIAL ONE; -FENTANYL CITRATE/PF 100MCG/2 ML INJ ONE; +IOPAMIDOL 300MG/ML 100 ML INFUS..BTL IV ONE; -LIDOCAINE HCL 2% LOCAL INJ 5 ML SDV VIAL INJ ONE; -MIDAZOLAM HCL 2 MG/2 ML VIAL ONE; -ONDANSETRON HCL INJ 2MG/ML 2ML 2 MG/ML VIAL ONE; -POVIDONE IODINE 0.05% 0.05 % ML PO ONE; -PROPOFOL IV EMULSION 10 MG/ML 20 ML VIAL ONE; -SEVOFLURANE INHAL SOLN 250 ML PEN BTL ONE; +SODIUM CHLORIDE 0.9% 250ML 250 ML ONE; -SODIUM CHLORIDE 0.9% 50ML 50 ML ONE
== END ==
LOC: DX 09:23
PROVIDERS: ATTEND Urology
DX: T19.9XXD Foreign body in genitourinary tract, part unspecified, subsequent encounter (principal)
CPT/HCPCS: C1729; C1769; J7050; Q9967; U0002; 50435

== ENCOUNTER 2021-11-17 22:47 | Observation (INO) | payer MEDICARE ==
[~2021-11-17] VITALS: Ht 154.9 cm; Wt 64.4 kg
[~2021-11-17 22:47] MED LIST changes: -IOPAMIDOL 300MG/ML 100 ML INFUS..BTL IV ONE; -SODIUM CHLORIDE 0.9% 250ML 250 ML ONE
[2021-11-17 23:22] LABS: BASOPHILS % 0.6 % (0.0-1.0); EOSINOPHILS # (AUTO) 0.2 (0.0-0.4); EOSINOPHILS % 2.1 % (0.0-6.0); HEMATOCRIT 42.1 % (34.2-44.1); HEMOGLOBIN 13.6 g/dL (12.0-16.0); LYMPHOCYTES # (AUTO) 0.9 (1.0-3.2); LYMPHOCYTES % 13.2 % (18.0-39.1); MEAN CORPUSCULAR HEMOGLOBIN 31.2 pg (28-32); MEAN CORPUSCULAR HGB CONC 32.3 g/dL (31-35); MEAN CORPUSCULAR VOLUME 96.6 fL (81-99); MONOCYTES # (AUTO) 0.8 (0.2-0.8); MONOCYTES % 10.9 % (4.4-11.3); NEUTROPHILS # (AUTO) 5.2 (2.1-6.9); NEUTROPHILS % 73.1 % (38.7-80.0); PLATELET COUNT 282 x10e3/uL (140-360); RED BLOOD COUNT 4.36 x10e6/uL (3.6-5.1); RED CELL DISTRIBUTION WIDTH 13.2 % (11.7-14.4)
[2021-11-17 23:29] LABS: INR 0.84; PROTHROMBIN TIME 12.3 seconds (11.9-14.5)
[2021-11-17 23:30] LABS: PARTIAL THROMBOPLASTIN TIME 47.2 seconds (23.8-35.5)
[2021-11-17 23:39] LABS: ALBUMIN 3.9 g/dL (3.5-5.0); ALBUMIN/GLOBULIN RATIO 0.8 (0.8-2.0); ANION GAP 14.6 mmol/L (8-16); CALCIUM 9.4 mg/dL (8.4-10.2); CREATININE, SERUM 1.22 mg/dL (0.57-1.11); POTASSIUM 3.6 mmol/L (3.5-5.1)
[2021-11-17] MEDS ORDERED: PIPERACILLIN/TAZOBACTAM SOD 2.25 GM VIAL ONE (23:39)
[2021-11-17] MEDS: PIPERACILLIN/TAZOBACTAM 3.375 GM in SODIUM CHLORIDE 0.9% 50ML 50 ML IV SCH (23:39)
[2021-11-17] MEDS ORDERED: PIPERACILLIN/TAZOBACTAM 3.375 GM VIAL ONE (23:41)
[2021-11-18] VITALS: BP 141/92
[2021-11-18] MEDS ORDERED: ONDANSETRON HCL INJ 2MG/ML 2ML 2 MG/ML VIAL IV PRN (00:15)
[2021-11-18 01:30] VITALS: BP 141/92
[2021-11-18] MEDS: SODIUM CHLORIDE 0.9% 1000ML 1,000 ML IV SCH ×2 (01:30→10:15)
[2021-11-18 04:00] VITALS: BP 124/70
[2021-11-18] MEDS: PIPERACILLIN/TAZOBACTAM 3.375 GM in SODIUM CHLORIDE 0.9% 50ML 50 ML IV SCH (06:08)
[2021-11-18 08:16] VITALS: BP 113/72
[2021-11-18 08:18] VITALS: BP 113/72
[2021-11-18] MEDS ORDERED: LIDOCAINE HCL 1% LOCAL INJ 20 ML VIAL ONE (09:41)
[2021-11-18] MEDS ORDERED: SODIUM CHLORIDE 0.9% 250ML 250 ML ONE (09:42)
[2021-11-18] MEDS ORDERED: IOPAMIDOL 300MG/ML 100 ML INFUS..BTL IV ONE (09:42)
[2021-11-18] MEDS ORDERED: FENTANYL CITRATE/PF 100MCG/2 ML INJ ONE (09:54)
[2021-11-18 11:11] LABS: BASOPHILS % 0.7 % (0.0-1.0); EOSINOPHILS # (AUTO) 0.1 (0.0-0.4); EOSINOPHILS % 2.8 % (0.0-6.0); HEMATOCRIT 40.2 % (34.2-44.1); HEMOGLOBIN 12.7 g/dL (12.0-16.0); LYMPHOCYTES # (AUTO) 0.9 (1.0-3.2); MEAN CORPUSCULAR HEMOGLOBIN 31.1 pg (28-32); MEAN CORPUSCULAR HGB CONC 31.6 g/dL (31-35); MEAN CORPUSCULAR VOLUME 98.5 fL (81-99); MONOCYTES # (AUTO) 0.6 (0.2-0.8); MONOCYTES % 12.4 % (4.4-11.3); NEUTROPHILS % 64.9 % (38.7-80.0); PLATELET COUNT 280 x10e3/uL (140-360); RED BLOOD COUNT 4.08 x10e6/uL (3.6-5.1); RED CELL DISTRIBUTION WIDTH 13.2 % (11.7-14.4)
[2021-11-18 11:36] LABS: ALBUMIN 3.5 g/dL (3.5-5.0); ALBUMIN/GLOBULIN RATIO 0.8 (0.8-2.0); ANION GAP 11.7 mmol/L (8-16); CALCIUM 8.9 mg/dL (8.4-10.2); CREATININE, SERUM 1.05 mg/dL (0.57-1.11); POTASSIUM 3.7 mmol/L (3.5-5.1)
[2021-11-18 11:37] VITALS: BP 125/75
[2021-11-19] MEDS ORDERED: NIFEDIPINE CR 30 MG TAB PO SCH (09:00)
== END 2021-11-18 12:45 | disposition home or self-care (01) ==
LOC: ER 23:06 → ERHOLD 11-18 00:13 → INTOOBSV 11-18 00:13 → MED/SURG2 11-18 01:12
PROVIDERS: ADMIT Internal Medicine; ATTEND Internal Medicine
DX: N99.522 Malfunction of incontinent external stoma of urinary tract (principal); N13.1 Hydronephrosis with ureteral stricture, not elsewhere classified; N17.9 Acute kidney failure, unspecified; I10 Essential (primary) hypertension; F41.9 Anxiety disorder, unspecified; Z88.5 Allergy status to narcotic agent; Z20.822 Contact with and (suspected) exposure to COVID-19
CPT/HCPCS: 36415 ×2; 50435; 74470; 80053 ×2; 83605; 85025 ×2; 85610; 85730; 87040; 94799; 99284; G0378; J2001; J2543 ×2; J3010; J7030; J7050; Q9967; U0002; 99152; 99153; C1769

== ENCOUNTER → 2022-02-07 | Outpatient (CLI) | payer MEDICARE ==
[~2022-02-07] MED LIST changes: +IOPAMIDOL 300MG/ML 100 ML INFUS..BTL IV ONE; +LIDOCAINE HCL 1% LOCAL INJ 20 ML VIAL ONE; +SODIUM CHLORIDE 0.9% 250ML 250 ML ONE
== END ==
LOC: DX 10:16
PROVIDERS: ATTEND Urology
DX: Z43.6 Encounter for attention to other artificial openings of urinary tract (principal)
CPT/HCPCS: J2001; J7050; Q9967; U0002; 50435

== ENCOUNTER 2022-04-14 14:55 | Observation (INO) | payer MEDICARE ==
[~2022-04-14] VITALS: Ht 154.9 cm; Wt 64.4 kg
[~2022-04-14 14:55] MED LIST changes: -IOPAMIDOL 300MG/ML 100 ML INFUS..BTL IV ONE; -LIDOCAINE HCL 1% LOCAL INJ 20 ML VIAL ONE; -SODIUM CHLORIDE 0.9% 250ML 250 ML ONE
[2022-04-14] MEDS ORDERED: Morphine 4mg INJECTION 4 MG/ML INJ IV PRN (15:15)
[2022-04-14] MEDS ORDERED: ONDANSETRON HCL INJ 2MG/ML 2ML 2 MG/ML VIAL IV PRN (15:15)
[2022-04-14 16:01] LABS: BASOPHILS % 0.3 % (0.0-1.0); EOSINOPHILS # (AUTO) 0.1 (0.0-0.4); EOSINOPHILS % 0.9 % (0.0-6.0); HEMATOCRIT 42.6 % (34.2-44.1); HEMOGLOBIN 13.4 g/dL (12.0-16.0); LYMPHOCYTES # (AUTO) 0.9 (1.0-3.2); LYMPHOCYTES % 8.8 % (18.0-39.1); MEAN CORPUSCULAR HEMOGLOBIN 30.7 pg (28-32); MEAN CORPUSCULAR HGB CONC 31.5 g/dL (31-35); MEAN CORPUSCULAR VOLUME 97.5 fL (81-99); MONOCYTES % 10.4 % (4.4-11.3); NEUTROPHILS # (AUTO) 7.7 (2.1-6.9); NEUTROPHILS % 79.3 % (38.7-80.0); PLATELET COUNT 286 x10e3/uL (140-360); RED BLOOD COUNT 4.37 x10e6/uL (3.6-5.1); RED CELL DISTRIBUTION WIDTH 13.1 % (11.7-14.4)
[2022-04-14] MEDS: SODIUM CHLORIDE 0.9% 1000ML 1,000 ML IV SCH ×2 (16:14→23:55)
[2022-04-14 16:16] LABS: INR 0.92; PROTHROMBIN TIME 13.2 seconds (11.9-14.5)
[2022-04-14 16:21] LABS: ALANINE AMINOTRANSFERASE 12 IU/L (0-55); ALBUMIN 3.8 g/dL (3.5-5.0); ALBUMIN/GLOBULIN RATIO 0.8 (0.8-2.0); ALKALINE PHOSPHATASE 97 IU/L (40-150); ANION GAP 19.5 mmol/L (8-16); BLOOD UREA NITROGEN 26 mg/dL (7-26); BUN/CREATININE RATIO 20 (6-25); CARBON DIOXIDE 22 mmol/L (22-29); CHLORIDE 102 mmol/L (98-107); CREATININE, SERUM 1.29 mg/dL (0.57-1.11); GLUCOSE 92 mg/dL (74-118); POTASSIUM 3.5 mmol/L (3.5-5.1); SODIUM 140 mmol/L (136-145)
[2022-04-14 19:54] VITALS: BP 105/68
[2022-04-14 20:37] VITALS: BP 105/68
[2022-04-15] VITALS: BP 133/74
[2022-04-15 04:00] VITALS: BP 122/71
[2022-04-15 05:47] LABS: BASOPHILS % 0.3 % (0.0-1.0); EOSINOPHILS # (AUTO) 0.1 (0.0-0.4); EOSINOPHILS % 0.8 % (0.0-6.0); HEMATOCRIT 35.7 % (34.2-44.1); HEMOGLOBIN 11.5 g/dL (12.0-16.0); LYMPHOCYTES # (AUTO) 0.6 (1.0-3.2); LYMPHOCYTES % 5.9 % (18.0-39.1); MEAN CORPUSCULAR HEMOGLOBIN 30.2 pg (28-32); MEAN CORPUSCULAR HGB CONC 32.2 g/dL (31-35); MEAN CORPUSCULAR VOLUME 93.7 fL (81-99); MONOCYTES # (AUTO) 0.8 (0.2-0.8); MONOCYTES % 7.7 % (4.4-11.3); NEUTROPHILS # (AUTO) 8.6 (2.1-6.9); NEUTROPHILS % 84.9 % (38.7-80.0); PLATELET COUNT 262 x10e3/uL (140-360); RED BLOOD COUNT 3.81 x10e6/uL (3.6-5.1); RED CELL DISTRIBUTION WIDTH 12.9 % (11.7-14.4)
[2022-04-15 06:20] LABS: ANION GAP 15.4 mmol/L (8-16); CALCIUM 8.1 mg/dL (8.4-10.2); CREATININE, SERUM 0.82 mg/dL (0.57-1.11); POTASSIUM 3.4 mmol/L (3.5-5.1)
[2022-04-15 08:18] VITALS: BP 113/71
[2022-04-15 08:53] VITALS: BP 113/71
[2022-04-15 12:03] VITALS: BP 136/74
[2022-04-15] MEDS ORDERED: SODIUM CHLORIDE 0.9% 250ML 250 ML ONE (12:03)
[2022-04-15] MEDS ORDERED: IOPAMIDOL 300 MG/ML 15ML VIAL IT ONE (12:03)
[2022-04-15] MEDS ORDERED: IOPAMIDOL 370 MG/ML 100 ML INFUS..BTL INJ ONE (12:06)
[2022-04-15] MEDS ORDERED: CEFTRIAXONE 1 GM VIAL ONE (12:23)
[2022-04-15] MEDS ORDERED: FENTANYL CITRATE/PF 100MCG/2 ML INJ ONE (12:32)
[2022-04-15] MEDS ORDERED: ONDANSETRON HCL 4 MG ORAL DISINTEGRATING TAB SL PRN (14:00)
[2022-04-15] MEDS ORDERED: POTASSIUM CHLORIDE 10MEQ EA PO ONE (15:45)
== END 2022-04-15 17:26 | disposition home or self-care (01) ==
LOC: ER 15:00 → ERHOLD 15:51 → MED/SURG2 20:06
PROVIDERS: ADMIT Internal Medicine; ATTEND Internal Medicine
DX: N99.522 Malfunction of incontinent external stoma of urinary tract (principal); U07.1 COVID-19; N17.9 Acute kidney failure, unspecified; E87.2 Acidosis; I10 Essential (primary) hypertension; Z88.5 Allergy status to narcotic agent; Z20.822 Contact with and (suspected) exposure to COVID-19; N13.30 Unspecified hydronephrosis; E87.6 Hypokalemia; Z87.440 Personal history of urinary (tract) infections
CPT/HCPCS: 0223U; 36415 ×2; 50435; 74470; 80048; 80053; 85025 ×2; 85610; 96361; 99284; C1769; G0378 ×2; J0696; J2270; J2405; J3010; J7030; J7050; Q9967 ×2; 96360

== ENCOUNTER 2022-06-09 09:29 | Emergency (ER) | payer MEDICARE ==
[~2022-06-09] VITALS: Ht 154.9 cm; Wt 64.4 kg
[2022-06-09 10:56] LABS: BASOPHILS % 0.6 % (0.0-1.0); EOSINOPHILS # (AUTO) 0.7 (0.0-0.4); EOSINOPHILS % 9.2 % (0.0-6.0); HEMATOCRIT 44.3 % (34.2-44.1); HEMOGLOBIN 13.8 g/dL (12.0-16.0); LYMPHOCYTES # (AUTO) 0.6 (1.0-3.2); LYMPHOCYTES % 8.8 % (18.0-39.1); MEAN CORPUSCULAR HEMOGLOBIN 30.9 pg (28-32); MEAN CORPUSCULAR HGB CONC 31.2 g/dL (31-35); MEAN CORPUSCULAR VOLUME 99.3 fL (81-99); MONOCYTES # (AUTO) 0.4 (0.2-0.8); MONOCYTES % 6.2 % (4.4-11.3); NEUTROPHILS # (AUTO) 5.3 (2.1-6.9); NEUTROPHILS % 74.9 % (38.7-80.0); PLATELET COUNT 215 x10e3/uL (140-360); RED BLOOD COUNT 4.46 x10e6/uL (3.6-5.1); RED CELL DISTRIBUTION WIDTH 13.2 % (11.7-14.4)
[2022-06-09 11:16] LABS: ANION GAP 13.8 mmol/L (8-16); CALCIUM 9.3 mg/dL (8.4-10.2); CREATININE, SERUM 0.9 mg/dL (0.57-1.11); POTASSIUM 3.8 mmol/L (3.5-5.1)
[2022-06-09] MEDS ORDERED: SODIUM CHLORIDE 0.9% 250ML 250 ML ONE (12:29)
[2022-06-09 13:21] LABS: INR 0.83; PROTHROMBIN TIME 12.2 seconds (11.9-14.5)
[2022-06-09 13:22] LABS: PARTIAL THROMBOPLASTIN TIME 25.8 seconds (23.8-35.5)
[2022-06-09] MEDS ORDERED: IOPAMIDOL 300MG/ML 100 ML INFUS..BTL IV ONE (14:54)
== END 2022-06-09 17:53 | disposition home or self-care (01) ==
LOC: ER 09:38
DX: Z43.6 Encounter for attention to other artificial openings of urinary tract (principal); I10 Essential (primary) hypertension; F41.9 Anxiety disorder, unspecified; Z87.442 Personal history of urinary calculi
CPT/HCPCS: 36415; 74470; 80048; 85025; 85610; 85730; 87086; 99284; C1729; C1769; J7050; Q9967; 50435

== ENCOUNTER → 2022-10-15 | Outpatient (CLI) | payer MEDICARE ==
[~2022-10-15] MED LIST changes: +IOPAMIDOL 370 MG/ML 100 ML INFUS..BTL INJ ONE; +SODIUM CHLORIDE 0.9% 250ML 250 ML ONE
== END ==
LOC: DX 12:52
PROVIDERS: ATTEND Urology
DX: Z43.6 Encounter for attention to other artificial openings of urinary tract (principal)
CPT/HCPCS: 50389; 74425; J7050; Q9967